=== PATIENT | male | born 1970 | race Caucasian/White ===

== ENCOUNTER 2023-12-07 05:07 | Emergency (ER) | payer OTHER ==
--- OUTSIDE RECORDS SUMMARY | 2023-12-07 05:10 | XMS REPORT | Continuity of Care Document ---
Author Name Unknown Address [address] [facility] [address] [place] [address] [facility] Address [address] [facility] [address] [place] [address] Care Team Providers Care Health Policy Analyst Name Role Phone BEVERLEY PATTERSON Attending Clinician Unavailable KEVIN EUBANKS Attending Clinician Unavailable Encounters Start Date/Time End Date/Time Encounter Type Admission Type Attending Clinicians Care Facility Care Department Encounter ID Source 2023-08-04 08:59:52 2023-08-04 08:59:52 Outpatient [facility] S[facility] [id number] Sarwat Watt 2023-07-02 14:18:35 2023-07-02 14:18:35 Outpatient [facility] SFA [id number] Sarwat Watt 2023-06-21 09:54:19 2023-06-21 09:54:19 Outpatient [facility] SFA [id number] Sarwat Watt 2022-11-10 11:21:50 2022-11-10 11:21:50 Outpatient [facility] SFA [id number] Sarwat Watt 2022-10-10 08:45:00 2022-10-10 08:45:00 Outpatient BEVERLEY PATTERSON [id number] Maribell Noriega 2022-09-21 08:02:11 2022-09-21 08:02:11 Outpatient [facility] SFA [id number] Sarwat Farley Shukri 2022-09-18 09:45:00 2022-09-18 09:45:00 Outpatient KEVIN EUBANKS [id number] Maribell Noriega Results Test Description Test Time Test Comments Results Result Co mments Source RHEUMATOID FACTOR, [id number] 06:31:40* Test Item Value Reference Range Interpretation Comme nts RHEUMATOID FACTOR, QUANT (te st code = 3502) 11 IU/ML <14 URIC [id number] 06:16:49* Test Item Value Reference Range Interpretation Comme nts URIC ACID (test code = 2233) 6.8 MG/DL 3.7-8.0 CCP [id number] 05:34:04* Test Item Value Reference Range Interpretation Comme nts CCP IgG (test code = 40923) <0.5 U/ML <3.0 INTERPRETIVE INFORMATION INTERPRETATION RESULT NEGATIVE <3.0 U/ML POSITIVE >=3.0 U/ML SEDIMENTATION [id number] 05:10:47* Test Item Value Reference Range Interpretation Comme nts SEDIMENTATION RATE (test code = 1017) 14 MM/HOUR 0-15 UNLESS OTHERW ISE INDICATED, ALL TESTING PERFORMED AT [facility] [address] [place] [address] REDIPPER: EMEKA BHATT M.D. CLIA NUMBER [id number] [place]. [id number] CBC W/AUTO DIFF WITH [id number] 03:20:29* Test Item Value Reference Range Interpretation Comme nts WBC (test code = 1001) 10.8 K/UL 3.5-11.0 RBC (test code = 1002) 4.27 M/UL 4.50-6.10 L HEMOGLOBIN (test code = 1003) 12.9 G/DL 13.5-17.0 L HEMATOCRIT (test code = 1004) 39.6 % 40.0-51.0 L MCV (test code = 1005) 92.7 fL 80.0-99.0 MCH (test code = 1006) 30.2 PG 25.0-33.0 MCHC (test code = 1007) 32.6 G/DL 31.0-36.0 RDW (test code = 1038) 12.9 % 11.5-15.0 NEUTROPHILS (test code = 1008) 67.6 % LYMPHOCYTES (test code = 1010) 22.5 % MONOCYTES (test code = 1011) 6.4 % EOSINOPHILS (test code = 1012) 1.7 % BASOPHILS (test code = 1013) 0.5 % IMMATURE GRANULOCYTES (test code = 1036) 1.3 % NUCLEATED RBCS (test code = 1065) 0.0 /100 WBC'S See_Comment [Automated messa SvitStyle] The system which generated this result transmitted reference range: 0.0. The reference range was not used to interpret this result as normal/abnormal. PLATELET COUNT (test code = 1015) 430 K/UL 130-400 H ABSOLUTE NEUTROPHILS (test code = 1066) 7.33 K/UL 1.50-7.50 ABSOLUTE LYMPHOCYTES (test code = 1067) 2.44 K/UL 1.00-4.00 ABSOLUTE MONOCYTES (test code = 1068) 0.69 K/UL 0.20-1.00 ABSOLUTE EOSINOPHILS (test code = 1040) 0.18 K/UL 0.00-0.50 ABSOLUTE BASOPHILS (test code = 1069) 0.05 K/UL 0.00-0.20 ABS IMMATURE GRANULOCYTES (test code = 1020) 0.14 K/UL 0.00-0.10 H ABS NUCLEATED RBCS (test code = 12462) 0.00 K/UL 0.00-0.11
[2023-12-07] MEDS ORDERED: MORPHINE 4 MG/ML SYR ONE (05:30)
[2023-12-07] MEDS ORDERED: ACETAMINOPHEN 500 MG TAB ONE (05:30)
[2023-12-07] MEDS ORDERED: IBUPROFEN 400 MG TAB ONE (05:30)
[2023-12-07] MEDS ORDERED: LIDOCAINE 1% 20 ML MDV ONE (05:35)
--- NOTE | 2023-12-07 06:20 | EDPHYS ---
Physician Documentation [facility] Name: Elliott Olsen Age: 53 yrs Sex: Male : 1970 Arrival Date: 12/07/2023 Time: 05:07 Bed 7 Private MD: ED Physician Roland Pinon HPI: 12/06 05:24 This 53 yrs old Male presents to ER via Ambulatory with complaints of Foot ec2 Injury, Pain. 05:24 Patient arrives today after a foot injury. States that he stepped his right big toe and ec2 it is now deformed.. Historical: - Allergies: 05:22 Sulfa (Sulfonamide Antibiotics); bm8 05:22 PENICILLINS; bm8 - Home Meds: 05:22 None [Active]; bm8 - PMHx: 05:22 None; bm8 - PSHx: 05:22 hernia repair x3; bm8 - Immunization history:: Adult Immunizations unknown. - Infectious Disease History:: Denies. - Social history:: Smoking status: Patient denies any tobacco usage or history of. Patient uses alcohol. ROS: 05:24 Constitutional: as per hpi ec2 Exam: 05:24 Constitutional: GEN: NAD Head: atraumatic Eyes: EOMI Ears: External ears are ec2 normal. CV: regular rate LUNGS: no respiratory distress ABD: non-distended SKIN: no evidence of rashes MSK: What appears like distal dislocation of the right great toe NEURO: moves all extremities equally Vital Signs: 05:20 BP 174 / 112; Pulse 80; Resp 17; Temp 97.9; Pulse Ox 98% ; Weight 90.72 kg; Height 5 bm8 ft. 10 in. ; Pain 8/10; 06:23 BP 161 / 112; Pulse 80; Resp 17; Temp 98; Pulse Ox 99% ; Pain 3/10; bm8 05:20 Body Mass Index 28.70 (90.72 kg, 177.8 cm) bm8 05:20 Pain Scale: Adult bm8 06:23 Pain Scale: Adult bm8 Acton Coma Score: 05:25 Eye Response: spontaneous(4). Motor Response: obeys commands(6). Verbal Response: bm8 oriented(5). Total: 15. 06:23 Eye Response: spontaneous(4). Motor Response: obeys commands(6). Verbal Response: bm8 oriented(5). Total: 15. Procedures: 05:41 Nerve block: (digital) of plantar aspect of right first toe Medication: Lidocaine 1% ec2 without epinephrine Amount: 8 mls were injected, Effect: the patient's symptoms are improved, moderately, Set up for procedure. Performed by Roland Pinon MD Patient tolerated well. 06:16 Joint Treatment: reduction of the right foot/toe(s) Right first toenail using joint ec2 reduction. MDM: 05:14 Patient medically screened. ec2 05:24 Data reviewed: vital signs. ED course: Patient arrives today for evaluation of a right ec2 great toe injury. Examination remarkable for MSK findings as above. No open wounds. Will obtain radiograph eval for fracture, dislocation, contusion.. 05:46 ED course: Foot x-ray independently reviewed and interpreted by me, shows distal ec2 phalanx fracture, comminuted, displaced. Will attempt manipulation.. 12/06 05:16 Order name: Foot Right 3 View XRAY ec2 12/06 05:59 Order name: Foot Right 3 View XRAY ec2 12/06 05:46 Order name: Posterior Leg Splint; Complete Time: 06:10 ec2 12/06 05:46 Order name: Crutches; Complete Time: 06:10 ec2 Administered Medications: 05:34 Drug: morphine IM 4 mg IM once Route: IM; Site: right deltoid; bm8 06:11 Follow up: Response: No adverse reaction bm8 05:34 Drug: Acetaminophen PO 1000 mg PO once Route: PO; bm8 06:11 Follow up: Response: No adverse reaction bm8 05:34 Drug: Ibuprofen PO 800 mg PO once Route: PO; bm8 06:11 Follow up: Response: No adverse reaction bm8 05:40 Drug: Lidocaine-Epinephrine Infiltration -1%: (1:100,000) 10 ml 20 ml Infiltration bm8 once; to bedside {Note: by provider.} Volume: 20 ml; Route: Infiltration; Site: affected area; 06:11 Follow up: Response: No adverse reaction bm8 Disposition Summary: 12/07/23 06:19 Discharge Ordered Notes: Location: Home ec2 Condition: Stable ec2 Diagnosis - Dislocation of metatarsophalangeal joint of right great toe, initial encounter ec2 - Displaced fracture of distal phalanx of right great toe, initial encounter for ec2 closed fracture Followup: ec2 - With: Private Physician - When: - Reason: Re-evaluation by your physician Followup: ec2 - With: Sumit Rocha MD - When: - Reason: Recheck today's complaints Discharge Instructions: - Discharge Summary Sheet ec2 - Toe Fracture, [id number] ec2 Forms: - Medication Reconciliation Form ec2 - Antibiotic Education ec2 - Prescription Opioid Use ec2 - Patient Portal Instructions ec2 - Leadership Thank You Letter ec2 Prescriptions: - acetaminophen-codeine 300-30 mg Oral tablet - take 1 tablet ORAL route every 4 hours; 20 tablet; Refills: 0, Product ec2 Selection Permitted Signatures: Dispatcher [employer] EDMS Roland Pinon MD MD ec2 José Rocha RN RN bm8 Corrections: (The following items were deleted from the chart) 05:42 05:24 ED course: Patient arrives today for evaluation of a right great toe injury. ec2 Examination remarkable for MSK findings as above. Will obtain radiograph eval for fracture, dislocation, contusion.. ec2 05:46 05:26 Misc. Order ordered. ec2 ec2 05:46 05:26 Ortho shoe ordered. ec2 ec2
--- NOTE | 2023-12-07 06:20 | ER ---
Nurse's Notes [facility] Name: Elliott Olsen Age: 53 yrs Sex: Male : 1970 Arrival Date: 12/07/2023 Time: 05:07 Bed 7 Private MD: Diagnosis: Dislocation of metatarsophalangeal joint of right great toe, initial encounter;Displaced fracture of distal phalanx of right great toe, initial encounter for closed fracture Presentation: 12/06 05:20 Chief complaint: Patient states: I letting my dog out this morning and hit my toe. I bm8 think I broke it. Coronavirus screen: At this time, the client does not indicate any symptoms associated with coronavirus-19. Ebola Screen: Patient negative for fever greater than or equal to 101.5 degrees Fahrenheit, and additional compatible Ebola Virus Disease symptoms Patient denies exposure to infectious person. Patient denies travel to an Ebola-affected area in the 21 days before illness onset. No symptoms or risks identified at this time. Initial Sepsis Screen: Does the patient meet any 2 criteria? No. Patient's initial sepsis screen is negative. Does the patient have a suspected source of infection? No. Patient's initial sepsis screen is negative. Risk Assessment: Do you want to hurt yourself or someone else? Patient reports no desire to harm self or others. Onset of symptoms was December 07, 2023 at 04:30. 05:20 Method Of Arrival: Ambulatory bm8 05:20 Acuity: ALEKSEY 4 bm8 Triage Assessment: 05:22 General: Appears in no apparent distress. uncomfortable, Behavior is calm, cooperative, bm8 appropriate for age. Pain: Complains of pain in right first toe and Right first toenail Pain radiates to right foot Pain currently is 8 out of 10 on a pain scale. EENT: No signs and/or symptoms were reported regarding the EENT system. Neuro: Level of Consciousness is awake, alert, obeys commands, Oriented to person, place, time, situation, Appropriate for age. Cardiovascular: Denies chest pain, Capillary refill < 3 seconds Patient's skin is warm and dry. Respiratory: Airway is patent Respiratory effort is even, unlabored, Respiratory pattern is regular, symmetrical. GI: No signs and/or symptoms were reported involving the gastrointestinal system. : No signs and/or symptoms were reported regarding the genitourinary system. Derm: No signs and/or symptoms reported regarding the dermatologic system. Musculoskeletal: Bony deformity noted of right first toe and Right first toenail Reports pain in right foot. Injury Description: Deformity. Historical: - Allergies: 05:22 Sulfa (Sulfonamide Antibiotics); bm8 05:22 PENICILLINS; bm8 - Home Meds: 05:22 None [Active]; bm8 - PMHx: 05:22 None; bm8 - PSHx: 05:22 hernia repair x3; bm8 - Immunization history:: Adult Immunizations unknown. - Infectious Disease History:: Denies. - Social history:: Smoking status: Patient denies any tobacco usage or history of. Patient uses alcohol. Screenin:25 [facility] ED Fall Risk Assessment (Adult) History of falling in the last 3 months, bm8 including since admission No falls in past 3 months (0 pts) Confusion or Disorientation No (0 pts) Intoxicated or Sedated No (0 pts) Impaired Gait Yes (1 pt) Mobility Assist Device Used No (0 pt) Altered Elimination No (0 pt) Score/Fall Risk Level 0 - 2 = Low Risk Oriented to surroundings, Maintained a safe environment, Educated pt \T\ family on fall prevention, incl call for assistance when getting out of bed, Assessed \T\ reinforced patient's understanding of fall precautions, Hourly rounding (assess needs \T\ fall precautionary measures) done, Used ambulatory aids as needed (educated on \T\ assisted with). Abuse screen: Denies threats or abuse. Nutritional screening: No deficits noted. Tuberculosis screening: No symptoms or risk factors identified. Assessment: 05:25 Reassessment: see triage note. bm8 06:11 Reassessment: Patient appears in no apparent distress at this time. Patient and/or bm8 family updated on plan of care and expected duration. Pain level reassessed. Patient is alert, oriented x 3, equal unlabored respirations, skin warm/dry/pink. Patient states feeling better. Vital Signs: 05:20 BP 174 / 112; Pulse 80; Resp 17; Temp 97.9; Pulse Ox 98% ; Weight 90.72 kg; Height 5 bm8 ft. 10 in. ; Pain 8/10; 06:23 BP 161 / 112; Pulse 80; Resp 17; Temp 98; Pulse Ox 99% ; Pain 3/10; bm8 05:20 Body Mass Index 28.70 (90.72 kg, 177.8 cm) bm8 05:20 Pain Scale: Adult bm8 06:23 Pain Scale: Adult bm8 Elisha Coma Score: 05:25 Eye Response: spontaneous(4). Motor Response: obeys commands(6). Verbal Response: bm8 oriented(5). Total: 15. 06:23 Eye Response: spontaneous(4). Motor Response: obeys commands(6). Verbal Response: bm8 oriented(5). Total: 15. ED Course: 05:13 Patient arrived in ED. gm2 05:13 Roland Pinon MD is Attending Physician. ec2 05:15 José Rocha, RN is Primary Nurse. bm8 05:22 Triage completed. bm8 05:22 Arm band placed on right wrist. bm8 05:25 Patient has correct armband on for positive identification. Bed in low position. Call bm8 light in reach. Adult w/ patient. Client placed on continuous cardiac and pulse oximetry monitoring. NIBP monitoring applied. Pulse ox on. NIBP on. Door closed. Noise minimized. Pillow given. Verbal reassurance given. Head of bed elevated. 05:25 Patient did not have IV access during this emergency room visit. bm8 05:59 Foot Right 3 View XRAY In Process Unspecified. EDMS 06:11 Provided Education on: use of crutches. bm8 06:11 No provider procedures requiring assistance completed. Crutch training done. Orthoglass bm8 splint: Posterior short lleg splint applied on right leg. 06:19 Sumit Rocha MD is Referral Physician. ec2 06:28 Foot Right 3 View XRAY In Process Unspecified. EDMS Administered Medications: 05:34 Drug: morphine IM 4 mg IM once Route: IM; Site: right deltoid; bm8 06:11 Follow up: Response: No adverse reaction bm8 05:34 Drug: Acetaminophen PO 1000 mg PO once Route: PO; bm8 06:11 Follow up: Response: No adverse reaction bm8 05:34 Drug: Ibuprofen PO 800 mg PO once Route: PO; bm8 06:11 Follow up: Response: No adverse reaction bm8 05:40 Drug: Lidocaine-Epinephrine Infiltration -1%: (1:100,000) 10 ml 20 ml Infiltration bm8 once; to bedside {Note: by provider.} Volume: 20 ml; Route: Infiltration; Site: affected area; 06:11 Follow up: Response: No adverse reaction bm8 Medication: 05:25 VIS not applicable for this client. bm8 Outcome: 06:19 Discharge ordered by . rosa isela 06:28 Discharged to home ambulatory, with crutches, bm8 06:28 Condition: stable 06:28 Condition: stable 06:28 Discharge instructions given to patient, family, Instructed on discharge instructions, follow up and referral plans. no drinking with medication, no driving heavy equipment, medication usage, safety practices, Demonstrated understanding of instructions, follow-up care, medications, Prescriptions given X 1, :29 Patient left the ED. bm8 Signatures: Dispatcher [employer] EDSC Roland Pinon MD MD ec2 Jhoana Walls 2 José Rocha, RN RN bm8
[2023-12-07 06:43] VITALS: BP 161/112; TEMP 98; O2SAT 99
--- NOTE | 2023-12-08 20:27 | RAD REPORT ---
EXAM DESCRIPTION: RAD - Foot Right 3 View - 12/07/2023 5:57 am CLINICAL HISTORY: Male, 53 years old, injury TECHNIQUE: 3 views COMPARISON: None. FINDINGS: Suboptimal patient positioning/projection limits assessment. Dorsal dislocation of the int erphalangeal joint with evidence of comminuted mildly displaced fragments of the phalangeal base. Ass ociated soft tissue swelling and deformity. Remaining osseous structures are intact. IMPRESSION: Right 1st toe dorsal IP joint fracture dislocation. Electronically signed by: Octavio Goncalves MD 12/07/2023 06:06 AM CDT RP Due to temporary technical issues with the PACS/Fluency reporting system, reports are being signed by the in house radiologists without review as a courtesy to insure prompt reporting. The interpreting radiologist is fully responsible for the content of the report.
--- NOTE | 2023-12-08 20:29 | RAD REPORT ---
EXAM DESCRIPTION: RAD - Foot Right 3 View - 12/07/2023 6:26 am CLINICAL HISTORY: Male, 53 years old, post reduction TECHNIQUE: 3 views COMPARISON: Same day right foot radiographs at 0527 hours FINDINGS: See below. IMPRESSION: Status post closed reduction of the previous right 1st interphalangeal joint dorsal disl ocation and splint placement with improved visualization of the significantly comminuted intra-articu lar fracture of the 1st distal phalangeal base. No other significant change from 46 minutes prior. Electronically signed by: Octavio Goncalves MD 12/07/2023 06:41 AM CDT RP Due to temporary technical issues with the PACS/Fluency reporting system, reports are being signed by the in house radiologists without review as a courtesy to insure prompt reporting. The interpreting radiologist is fully responsible for the content of the report.
== END 2023-12-07 06:29 | disposition home or self-care (01) ==
LOC: ER 05:07
PROC: 0SSMXZZ Reposition Right Metatarsal-Phalangeal Joint, External Approach (ICD-10-PCS; principal; 2023-12-07)
DX: S92.421A Displaced fracture of distal phalanx of right great toe, initial encounter for closed fracture (principal); S93.121A Dislocation of metatarsophalangeal joint of right great toe, initial encounter
CPT/HCPCS: 73630 ×2; 64450; 96372; 99284; 28495; J2001

== ENCOUNTER 2024-01-10 01:15 | Inpatient (IN) | payer OTHER ==
--- OUTSIDE RECORDS SUMMARY | 2024-01-10 01:18 | XMS REPORT | Continuity of Care Document ---
Author Name Unknown Address [address] [place] [address] [facility] Address [address] [place] [address] Care Team Providers Care Dixonac Operator Name Role Phone Meredith Galindo, Carmelina Primary Care Physician BEVERLEY PATTERSON Attending Clinician Unavailable KEVIN EUBANKS Attending Clinician Unavailable Allergies, Adverse Reactions, Alerts Allergy Name Allergy Type Status Severity Reaction(s) Onset Date Inactive Date Treating Clinician Comments Source Penicill ins - CLASS Propensi ty to adverse reaction to drug Active 09-21 00:00: 00 Sarwat Watt Medications Ordered Medication Name Filled Medication Name Start Date Stop Date Current Medication? Ordering Clinician Indication Dosage Frequency Signature (SIG) Comments Components Source azithromyci n 500 mg tablet 9-05 00:00: 00 Yes 1mg Sarwat Watt losartan 25 mg tablet 12-24 00:00: 00 Yes 1mg Sarwat Watt gabapentin 600 mg tablet 12-24 00:00: 00 Yes 1mg Sarwat Watt prednisone 20 mg tablet 12-24 00:00: 00 Yes 2mg Sarwat Watt ibuprofen 800 mg tablet 27 00:00: 00 Yes 1mg Sarwat Watt cyclobenzap rine 10 mg tablet 12-24 00:00: 00 Yes 1mg Sarwat Watt prednisone 20 mg tablet 3- 00:00: 00 Yes 2mg Sarwat Watt ibuprofen 800 mg tablet 3- 00:00: 00 Yes 1mg Sarwat Watt TAKE 10 ML EVERY 6 HOURS NEEDED. 06-21 00:00: 00 08-06 00:00 :00 No [id number] Sarwat Watt MASSAGE INTO SKIN FROM HEAD TO SOLES OF FEET. WASH OFF AFTER 8-14 HOURS.REPEA T IN 1 WEEK. 2-17 00:00: 00 08-06 00:00 :00 No 5 Sarwat Watt TAKE 2 TABLETS ON DAY 1 THEN TAKE 1 TABLET A DAY FOR 4 DAYS. 2-17 00:00: 00 08-06 00:00 :00 No 250 Sarwat Watt AZITHROMYCI N 250 MG TABS 2022-04 1-16 00:00: 00 Yes 250 Sarwat Watt MASSAGE INTO SKIN FROM HEAD TO SOLES OF FEET. WASH OFF AFTER 8-14 HOURS.REPEA T IN 1 WEEK. 7- 00:00: 00 08-06 00:00 :00 No 5 Sarwat Watt TAKE 2 TABLETS DAILY WITH FOOD 09-21 00:00: 00 08-06 00:00 :00 No 20 Sarwat Watt TAKE 1 TABLET 3 TIMES DAILY WITH FOOD NEEDED. 09-21 00:00: 00 08-06 00:00 :00 No 800 Sarwat Watt Vital Signs Vital Name Observation Time Observation Value Comments S ource BP Systolic 2024-01-03 15:45:00 121 mm[Hg] Steve Watt BP Diastolic 2024-01-03 15:45:00 77 mm[Hg] Abhay phen Miguelito Watt Weight Measured 2024-01-03 15:45:00 211.58 pounds Sarwat Watt Height Measured 2024-01-03 15:45:00 68.00 inches Sarwat Watt Body Temperature 2024-01-03 15:45:00 101.70 degrees Sarwat Watt Heart Rate 2024-01-03 15:45:00 139.00 /min Steve Watt Respiratory Rate 2024-01-03 15:45:00 18.00 /min Sarwat Watt BP Systolic 2023-12-25 17:42:00 154 mm[Hg] Steve Watt BP Diastolic 2023-12-25 17:42:00 98 mm[Hg] Abhay phen Miguelito Watt Weight Measured 2023-12-25 17:42:00 208.00 pounds Sarwat Watt Height Measured 2023-12-25 17:42:00 68.00 inches Sarwat F Shukri Body Temperature 2023-12-25 17:42:00 98.20 degrees Sarwat F Shukri Heart Rate 2023-12-25 17:42:00 62.00 /min Chiqui en F Shukri Respiratory Rate 2023-12-25 17:42:00 19.00 /min Sarwat F Shukri BP Systolic 2023-07-02 14:23:00 143 mm[Hg] Step hen F Shukri BP Diastolic 2023-07-02 14:23:00 96 mm[Hg] Abhay phen F Shukri Weight Measured 2023-07-02 14:23:00 197.80 pounds Sarwat F Shukri Height Measured 2023-07-02 14:23:00 68.00 inches Sarwat F Shukri Body Temperature 2023-07-02 14:23:00 98.90 degrees Sarwat F Shukri Heart Rate 2023-07-02 14:23:00 96.00 /min Chiqui en F Shukri Respiratory Rate 2023-07-02 14:23:00 18.00 /min Sarwat F Shukri BP Systolic 2023-06-21 10:11:00 166 mm[Hg] Step hen F Shukri BP Diastolic 2023-06-21 10:11:00 96 mm[Hg] Abhay phen F Shukri Weight Measured 2023-06-21 10:11:00 195.20 pounds Sarwat F Shukri Height Measured 2023-06-21 10:11:00 68.00 inches Sarwat F Shukri Body Temperature 2023-06-21 10:11:00 98.40 degrees Sarwat F Shukri Heart Rate 2023-06-21 10:11:00 97.00 /min Chiqui en F Shukri Respiratory Rate 2023-06-21 10:11:00 18.00 /min Sarwta F Shukri Weight Measured 2022-11-10 11:27:00 191.00 pounds Sarwat F Shukri Height Measured 2022-11-10 11:27:00 68.00 inches Sarwat F Shukri Body Temperature 2022-11-10 11:27:00 97.40 degrees Sarwat F Shukri Heart Rate 2022-11-10 11:27:00 82.00 /min Chiqui en F Shukri Respiratory Rate 2022-11-10 11:27:00 98.00 /min Sarwat F Shukri BP Systolic 2022-11-10 11:27:00 141 mm[Hg] Steve Watt BP Diastolic 2022-11-10 11:27:00 103 mm[Hg] Abhay phen Miguelito Watt BP Systolic 2022-09-21 08:08:00 140 mm[Hg] Steve Watt BP Diastolic 2022-09-21 08:08:00 88 mm[Hg] Abhay phen Miguelito Watt Weight Measured 2022-09-21 08:08:00 193.80 pounds Sarwat Watt Height Measured 2022-09-21 08:08:00 68.00 inches Sarwat Watt Body Temperature 2022-09-21 08:08:00 97.80 degrees Sarwat Watt Heart Rate 2022-09-21 08:08:00 114.00 /min Steve Watt Respiratory Rate 2022-09-21 08:08:00 Sarwat Watt Encounters Start Date/Time End Date/Time Encounter Type Admission Type Attending [facility] Care Department Encounter ID Source 2024-01-09 09:10:08 2024-01-09 09:10:08 Outpatient SFA SFA [id number] Sarwat Watt 2024-01-03 15:31:17 2024-01-03 15:31:17 Outpatient SFA SFA [id number] aSrwat Watt 2024-01-03 00:00:00 2024-01-03 00:00:00 Outpatient Visit SFA [id number] Sarwat Watt 2023-12-25 17:33:39 2023-12-25 17:33:39 Outpatient SFA SFA [id number] Sarwat Watt 2023-12-25 00:00:00 2023-12-25 00:00:00 Outpatient Visit SFA [id number] Sarwat Watt 2023-08-04 08:59:52 2023-08-04 08:59:52 Outpatient SFA SFA [id number] Sarwat Watt 2023-07-02 14:18:35 2023-07-02 14:18:35 Outpatient SFA SFA [id number] Sarwat Watt 2023-06-21 09:54:19 2023-06-21 09:54:19 Outpatient S[facility] [id number] Sarwat Watt 2022-11-10 11:21:50 2022-11-10 11:21:50 Outpatient SFA [facility] [id number] Sarwat Watt 2022-10-10 08:45:00 2022-10-10 08:45:00 Outpatient BEVERLEY PATTERSON [id number] Maribell Noriega 2022-09-21 08:02:11 2022-09-21 08:02:11 Outpatient SFA [facility] [id number] Sarwat Watt 2022-09-18 09:45:00 2022-09-18 09:45:00 Outpatient KEVIN EUBANKS [id number] Maribell Noriega Results Test Description Test Time Test Comments Results Result Co mments Source Sarwat Sanchez, SERUM [ADDED]2023-08-07 00:00:00* Test Item Value Reference Range Interpretation Comme nts IRON, SERUM (test code = 2222) 93 UG/DL Sarwat Howell REFLEX AUTOIMMUNE AB [id number] 22:21:19* Test Item Value Reference Range Interpretation Comme nts ANTI-NUCLEAR ANTIBODIES (test code = 3506) NEGATIVE NEGATIVE Methodology is I ndirect Immunofluorescent Assay (IFA) with a titering system using [id number] cells (Hep2 cells transfected with SS-A/Ro). ÁNGEL PATTERN (REPORTED TITER) (test code = 33326) SEE BELOW HOMOGENEOUS (test code = 84135) NEGATIVE TITER NEGATIVE SPECKLED (test code = 212156) NEGATIVE TITER NEGATIVE DENSE FINE SPECKLED (test code = 07013) NEGATIVE TITER NEGATIVE CENTROMERE (test code = 544408) NEGATIVE TITER NEGATIVE COARSE SPECKLED (test code = 852256) NEGATIVE TITER NEGATIVE DISCRETE NUCLEAR DOTS (test code = 675089) NEGATIVE TITER NEGATIVE NUCLEOLAR (test code = 843920) NEGATIVE TITER NEGATIVE NUCLEAR MEMBRANE (test code = 106280) NEGATIVE TITER NEGATIVE CYTO. RETICULAR (DIPESH) (test code = 394132) NEGATIVE NEGATIVE COMMENTS (test code = 221653) NONE METHOD (test code = 79192) (NOTE) TESTING PERFORME D BY IDx IFA PLATFORM.THE METHOD INCLUDES A SCREEN THRESHOLD OF 1:80, DIGITIZED AND COMPUTER ALGORITHM-ASSISTED INTERPRETATION OF TITERS AND DIGITAL PATTERNS, AND HEp-2 CELL LINE SUBSTRATE. ADDITIONAL UNUSUAL PATTERNS WILL BE GIVEN COMMENTS.FOR MORE INFORMATION, SEE [email or web address] RHEUMATOID FACTOR, [id number] 06:31:40* Test Item Value Reference Range Interpretation Comme nts RHEUMATOID FACTOR, QUANT (te st code = 3502) 11 IU/ML <14 URIC [id number] 06:16:49* Test Item Value Reference Range Interpretation Comme nts URIC ACID (test code = 2233) 6.8 MG/DL 3.7-8.0 CCP [id number] 05:34:04* Test Item Value Reference Range Interpretation Comme nts CCP IgG (test code = 99787) <0.5 U/ML <3.0 INTERPRETIVE INFORMATION INTERPRETATION RESULT NEGATIVE <3.0 U/ML POSITIVE >=3.0 U/ML SEDIMENTATION [id number] 05:10:47* Test Item Value Reference Range Interpretation Comme nts SEDIMENTATION RATE (test code = 1017) 14 MM/HOUR 0-15 UNLESS OTHERW ISE INDICATED, ALL TESTING PERFORMED AT [facility] [address] [place] [address] ROLL OR TAPE EDGE MACHINE OPERATOR: EMEKA BHATT M.D. CLIA NUMBER [id number] [facility] [id number] CBC W/AUTO DIFF WITH [id number] 03:20:29* Test Item Value Reference Range Interpretation [...] = 1065) 0.0 /100 WBC'S See_Comment [Automated [employer] ge] The system which generated this result transmitted [...] H ABS NUCLEATED RBCS (test code = 73594) 0.00 K/UL 0.00-0.11 ÁNGEL REFLEX AUTOIMMUNE AB [id number] 00:00:00* Test Item Value Reference Range Interpretation Comme nts ANTI-NUCLEAR ANTIBODIES (paige t code = 3506) NEGATIVE ÁNGEL PATTERN (REPORTED TITER) (test code = 22138) SEE BELOW HOMOGENEOUS (test code = 69041) NEGATIVE TITER SPECKLED (test code = 589171) NEGATIVE TITER DENSE FINE SPECKLED (test co de = 64364) NEGATIVE TITER CENTROMERE (test code = 914317) NEGATIVE TITER COARSE SPECKLED (test code = 921297) NEGATIVE TITER DISCRETE NUCLEAR DOTS (test code = 795507) NEGATIVE TITER NUCLEOLAR (test code = 134066) NEGATIVE TITER NUCLEAR MEMBRANE (test code = 120791) NEGATIVE TITER CYTO. RETICULAR (DIPESH) (test code = 261851) NEGATIVE COMMENTS (test code = 804978) NONE METHOD (test code = 54953) (NOTE) Sarwat Farley AustinRHEUMATOID FACTOR, [id number] 00:00:00* Test Item Value Reference Range Interpretation Comme nts RHEUMATOID FACTOR, QUANT (te st code = 3502) 11 IU/ML Sarwat WattCCP [id number] 00:00:00* Test Item Value Reference Range Interpretation Comme nts CCP IgG (test code = 84835) <0.5 U/ML Sarwat WattCBC W/AUTO [id number] 00:00:00* Test Item Value Reference Range Interpretation Comme nts WBC (test code = 1001) 10.8 K/UL RBC (test code = 1002) 4.27 M/UL HEMOGLOBIN (test code = 1003) 12.9 G/DL HEMATOCRIT (test code = 1004) 39.6 % MCV (test code = 1005) 92.7 fL MCH (test code = 1006) 30.2 PG MCHC (test code = 1007) 32.6 G/DL RDW (test code = 1038) 12.9 % NEUTROPHILS (test code = 1008) 67.6 % LYMPHOCYTES (test code = 1010) 22.5 % MONOCYTES (test code = 1011) 6.4 % EOSINOPHILS (test code = 1012) 1.7 % BASOPHILS (test code = 1013) 0.5 % IMMATURE GRANULOCYTES (test code = 1036) 1.3 % NUCLEATED RBCS (test code = 1065) 0.0 /100WBC'S PLATELET COUNT (test code = 1015) 430 K/UL ABSOLUTE NEUTROPHILS (test c ode = 1066) 7.33 K/UL ABSOLUTE LYMPHOCYTES (test c ode = 1067) 2.44 K/UL ABSOLUTE MONOCYTES (test cod e = 1068) 0.69 K/UL ABSOLUTE EOSINOPHILS (test c ode = 1040) 0.18 K/UL ABSOLUTE BASOPHILS (test cod e = 1069) 0.05 K/UL ABS IMMATURE GRANULOCYTES (t est code = 1020) 0.14 K/UL ABS NUCLEATED RBCS (test cod e = 01026) 0.00 K/UL Sarwat WattURIC [id number] 00:00:00* Test Item Value Reference Range Interpretation Comme nts URIC ACID (test code = 2233) 6.8 MG/DL Sarwat WattSEDIMENTATION [id number] 00:00:00* Test Item Value Reference Range Interpretation Comme nts SEDIMENTATION RATE (test cod e = 1017) 14 MM/HOUR Sarwat Howell REFLEX AUTOIMMUNE AB [id number] 00:00:00* Test Item Value Reference Range Interpretation Comme nts ANTI-NUCLEAR ANTIBODIES (paige t code = 3506) NEGATIVE ÁNGEL PATTERN (REPORTED TITER) (test code = 50400) SEE BELOW HOMOGENEOUS (test code = 83309) NEGATIVE TITER SPECKLED (test code = 208224) NEGATIVE TITER DENSE FINE SPECKLED (test co de = 17172) NEGATIVE TITER CENTROMERE (test code = 507735) NEGATIVE TITER COARSE SPECKLED (test code = 109455) NEGATIVE TITER DISCRETE NUCLEAR DOTS (test code = 521802) NEGATIVE TITER NUCLEOLAR (test code = 689917) NEGATIVE TITER NUCLEAR MEMBRANE (test code = 686296) NEGATIVE TITER CYTO. RETICULAR (DIPESH) (test code = 578599) NEGATIVE COMMENTS (test code = 249034) NONE METHOD (test code = 03816) (NOTE) Sarwat WattRHEUMATOID FACTOR, [id number] 00:00:00* Test Item Value Reference Range Interpretation Comme kenneth RHEUMATOID FACTOR, QUANT (te st code = 3502) 11 IU/ML Sarwat WattCCP [id number] 00:00:00* Test Item Value Reference Range Interpretation Comme nts CCP IgG (test code = 30812) <0.5 U/ML Sarwat WattCBC W/AUTO [id number] 00:00:00* Test Item Value Reference Range Interpretation Comme nts WBC (test code = 1001) 10.8 K/UL RBC (test code = 1002) 4.27 M/UL HEMOGLOBIN (test code = 1003) 12.9 G/DL HEMATOCRIT (test code = 1004) 39.6 % MCV (test code = 1005) 92.7 fL MCH (test code = 1006) 30.2 PG MCHC (test code = 1007) 32.6 G/DL RDW (test code = 1038) 12.9 % NEUTROPHILS (test code = 1008) 67.6 % LYMPHOCYTES (test code = 1010) 22.5 % MONOCYTES (test code = 1011) 6.4 % EOSINOPHILS (test code = 1012) 1.7 % BASOPHILS (test code = 1013) 0.5 % IMMATURE GRANULOCYTES (test code = 1036) 1.3 % NUCLEATED RBCS (test code = 1065) 0.0 /100WBC'S PLATELET COUNT (test code = 1015) 430 K/UL ABSOLUTE NEUTROPHILS (test c ode = 1066) 7.33 K/UL ABSOLUTE LYMPHOCYTES (test c ode = 1067) 2.44 K/UL ABSOLUTE MONOCYTES (test cod e = 1068) 0.69 K/UL ABSOLUTE EOSINOPHILS (test c ode = 1040) 0.18 K/UL ABSOLUTE BASOPHILS (test cod e = 1069) 0.05 K/UL ABS IMMATURE GRANULOCYTES (t est code = 1020) 0.14 K/UL ABS NUCLEATED RBCS (test cod e = 82606) 0.00 K/UL Sarwat WattURIC [id number] 00:00:00* Test Item Value Reference Range Interpretation Comme nts URIC ACID (test code = 2233) 6.8 MG/DL Sarwat WattSEDIMENTATION [id number] 00:00:00* Test Item Value Reference Range Interpretation Comme nts SEDIMENTATION RATE (test cod e = 1017) 14 MM/HOUR Sarwat Watt Notes Date/Time Note Provider Source Sarwat Escalante [facility]2024-08-27 00:00:00 Sarwat Escalante [facility]
[2024-01-10] MEDS ORDERED: NA CHLORIDE 0.9% 2,000 ML ONE (01:21)
[2024-01-10] MEDS ORDERED: VANCOMYCIN 1 GM/VIAL ONE (01:49)
[2024-01-10] MEDS ORDERED: ONDANSETRON 4 MG/2 ML VIAL ONE (01:49)
[2024-01-10] MEDS ORDERED: PIPERACIL/TAZO 3.375 GM VIAL IV ONE (01:50)
[2024-01-10] MEDS ORDERED: NA CHLORIDE 0.9% 1,000 ML ONE (01:50)
[2024-01-10] MEDS ORDERED: NA CHLORIDE 0.9% 100 ML ONE ×2 (01:51→06:52)
[2024-01-10] MEDS ORDERED: NA CHLORIDE 0.9% 250 ML ONE (01:51)
[2024-01-10] MEDS ORDERED: ALBUMIN HUMAN 25% 200 ML IV ONE (02:13)
[2024-01-10 02:38] LABS: Absolute Lymphocytes (CBC) 0.5 K/uL (0.7-4.9); Absolute Monocytes 0.1 K/uL (0.1-1.3); Absolute Neutrophil 34.9 K/uL (1.8-8.0); Basophils % 0.1 % (0-1.3); Eosinophils % 0.1 % (0-4.4); Hematocrit 32.7 % (39.6-49.0); Hemoglobin 10.9 g/dL (13.6-17.9); Lymphocytes % 1.4 % (15.3-44.8); MCHC 33.2 g/dL (32.0-36.0); MCV 93.2 fL (80-100); MPV 10.1 fL (7.6-11.3); Monocytes % 0.4 % (3.3-12.3); Platelets 214 thou/uL (152-406); RBC Red Blood Cell Count 3.51 M/uL (4.33-5.43); Red Cell Distribution Width 14.3 % (12.1-15.2)
[2024-01-10 02:41] LABS: PT Prothrombin Time 11.7 SECONDS (9.4-12.5); PTT, Activated Partial Thromb 28.2 SECONDS (24.3-36.9); Protime INR 1.05
[2024-01-10 02:55] LABS: Albumin 2.1 g/dL (3.4-5.0); Albumin/Globulin Ratio 0.5 (1.1-1.8); Anion Gap 16.2 mEq/L (5.0-15.0); Bilirubin Total 0.9 mg/dL (0.2-1.0); Globulin 4.1 g/dL (2.3-3.5); Potassium 3.2 mEq/L (3.5-5.1); Protein, Total 6.2 g/dL (6.4-8.2)
[2024-01-10 03:24] LABS: Thyroid Stimulating Hormone 6.15 uIU/mL (0.358-3.740)
[2024-01-10] MEDS ORDERED: MUPIROCIN 2% OINT 22GM TUBE TOP ONE (03:33)
[2024-01-10] MEDS ORDERED: NOREPINEPHRINE BITARTRATE/D5W 4 MG/250 ML KIT IV ONE (03:34)
[2024-01-10] MEDS ORDERED: LIDOCAINE 1% 20 ML MDV ONE (03:45)
[2024-01-10 03:53] LABS: Band Neutrophils 49 % (0-1); Blood Morphology Comment NOT SEEN (NOT SEEN); Differential Total Cells Count 100; Lymphocytes 1 % (15-42); Metamyelocytes 1 % (0-0); Monocytes 3 % (0-10); Platelet Estimate ADEQ; Segmented Neutrophils 46 % (40-80)
[2024-01-10 04:15] LABS: Arterial Blood Carboxyhemoglob 0.9 % (0-1.5); Blood Gas Oxyhemoglobin 96.3 % (94-97); Blood O2 Saturation 98.8 % (92-98.5)
[2024-01-10 04:16] LABS: Blood Gas THB 10.1 g/dl (12-18)
[2024-01-10] MEDS ORDERED: HYDROCORTISONE SUC 100 MG INJ ONE (04:24)
[2024-01-10] MEDS ORDERED: DOPAMINE/D5W 400 MG/250 ML BAG IV ONE (04:26)
[2024-01-10] MEDS ORDERED: SODIUM BICARB 50 MEQ/50ML VIAL ONE ×2 (04:26→04:48)
[2024-01-10] MEDS ORDERED: ATROPINE SULF 1 MG/10 ML SYR IV ONE (04:44)
[2024-01-10] MEDS ORDERED: Calcium Chloride 10% INJ SYR IV ONE (04:49)
[2024-01-10] MEDS ORDERED: CALCIUM GLUCONATE 1 GM IVPB 1 GM/50 ML BAG IV ONE (04:50)
[2024-01-10] MEDS ORDERED: MIDAZOLAM HCL IN 0.9 % NACL/PF 100 MG/100 ML BAG IVPB ONE (05:00)
--- NOTE | 2024-01-10 05:17 | EDPHYS ---
Physician Documentation [facility] Name: Elliott Olsen Age: 53 yrs Sex: Male : 1970 Arrival Date: 01/10/2024 Time: 01:15 Bed 4 Private MD: ED Physician Bryson Arnold HPI: 01/09 04:19 This 53 yrs old Male presents to ER via EMS with complaints of Near Syncope. sp4 Historical: - Allergies: 01:22 PENICILLINS; ha1 01:22 Sulfa (Sulfonamide Antibiotics); ha1 - PMHx: 01:22 Hypertensive disorder; BACK PAIN CHRONIC; ha1 - PSHx: 01:22 hernia repair x3; ha1 - Immunization history:: Adult Immunizations unknown. - Infectious Disease History:: Denies. - Social history:: Smoking status: unknown. ROS: 05:12 Constitutional: ROS not available secondary to obtunded condition sp4 05:12 All other systems are negative, 05:12 Unable to obtain ROS due to altered mental status, Exam: 04:20 Constitutional: This is a well developed, well nourished patient who is lethargic, sp4 ill-appearing, pale, diaphoretic, tachycardic Head/Face: Normocephalic, atraumatic. Eyes: Pupils equal round and reactive to light, extra-ocular motions intact. Lids and lashes normal. Conjunctiva and sclera are not injected. Cornea within normal limits. Periorbital areas with no swelling, redness, or edema. ENT: Nares patent. No nasal discharge, no septal abnormalities noted. Tympanic membranes are normal and external auditory canals are clear. Oropharynx with no redness, swelling, or masses, exudates, or evidence of obstruction, uvula midline. Mucous membranes moist. Neck: Trachea midline, no thyromegaly or masses palpated, and no cervical lymphadenopathy. Supple, full range of motion without nuchal rigidity, or vertebral point tenderness. Chest/axilla: Normal chest wall appearance and motion. Nontender with no deformity. No lesions are appreciated. Cardiovascular: Regular rate and rhythm with a normal S1 and S2. No gallops, murmurs, or rubs. Normal PMI, no JVD. No pulse deficits. Respiratory: Lungs have equal breath sounds bilaterally, clear to auscultation and percussion. No rales, rhonchi or wheezes noted. No increased work of breathing, no retractions or nasal flaring. Abdomen/GI: Soft, with normal bowel sounds. No distension or tympany. No guarding or rebound. No evidence of tenderness throughout. Back: No spinal tenderness. No costovertebral tenderness. Male : Normal genitalia with no discharge or lesions. Skin: Warm, dry with normal turgor. Normal color with no rashes, no lesions, and no evidence of cellulitis. MS/ Extremity: Pulses equal, no cyanosis. Neurovascular intact. Full, normal range of motion. Neuro: Patient is obtunded, examination is limited secondary to lethargy 04:22 ECG was reviewed by the Attending Physician. EKG at 01:18 EKG reveals sinus sp4 tachycardia rate 120 with PACs Vital Signs: 01:22 BP 58 / 41; Pulse 121; Resp 17 S; Temp 97.8(T); Pulse Ox 91% on R/A; Weight 93.5 kg; ha1 Height 5 ft. 9 in. ; 02:05 BP 77 / 66; Pulse 104; Resp 18; Pulse Ox 100% on R/A; kj2 02:19 BP 72 / 54; Pulse 106; Resp 16; Temp 97.8; Pulse Ox 100% on BiPAP; Pain 0/10; bm8 02:54 BP 71 / 53; Pulse 117; Resp 17 S; Pulse Ox 100% on R/A; ha1 03:00 BP 74 / 58; Pulse 117; Resp 17 S; Pulse Ox 100% on R/A; ha1 03:30 BP 71 / 49; Pulse 117; Resp 17 S; Pulse Ox 100% on BiPAP; ha1 03:50 BP 81 / 59; Pulse 110; Resp 16 S; Pulse Ox 100% on BiPAP; ha1 04:00 BP 88 / 62; Pulse 111; Resp 16; Temp 97.8; Pulse Ox 99% on bipap; Pain 0/10; ha1 04:06 BP 79 / 57; Pulse 114; Resp 16 S; Pulse Ox 99% on R/A; ha1 04:23 BP 88 / 60; Pulse 114; Resp 16 S; Pulse Ox 100% on BiPAP; ha1 05:00 BP 115 / 71; Pulse 122; Resp 16; Pulse Ox 96% on Bi-pap; kj2 05:10 BP 109 / 72; Pulse 126; Resp 20 (vent); Pulse Ox 96% ; kj2 05:20 BP 100 / 71; Pulse 124; Resp 18; Pulse Ox 97% ; kj2 05:30 BP 97 / 63; Pulse 121; Resp 20 A; Pulse Ox 97% on vent; kj2 05:45 BP 102 / 67; Pulse 129; Resp 20; Pulse Ox 91% on vent; kj2 06:00 BP 94 / 62; Pulse 122; Resp 20 A; Pulse Ox 93% on vent; kj2 06:23 BP 95 / 63; Pulse 126; Resp 16; Temp 99.7; Pulse Ox 94% on ETT vent; FiO2 100 %; Pain bm8 0/10; 07:10 BP 100 / 68; Pulse 126; Resp 18 A; Temp 99.3(Ca); Pulse Ox 92% on ETT vent; FiO2 100 %; ph 07:50 BP 111 / 87; Pulse 117; Resp 18 A; Temp 99(Ca); Pulse Ox 96% on ETT vent; FiO2 100 %; aa5 08:15 BP 116 / 78; Pulse 115; Resp 18 A; Temp 99(Ca); Pulse Ox 97% on ETT vent; FiO2 100 %; aa5 01:22 Body Mass Index 30.44 (93.50 kg, 175.26 cm) ha1 02:19 Pain Scale: Adult bm8 04:00 Pain Scale: Adult ha1 06:23 Pain Scale: Adult bm8 Elisha Coma Score: 02:19 Eye Response: to pain(2). Motor Response: localizes pain(5). Verbal Response: bm8 oriented(5). Total: 12. 04:08 Eye Response: to voice(3). Motor Response: obeys commands(6). Verbal Response: ha1 oriented(5). Total: 14. Ventilator: 05:05 Fi02: 100%; T.V.: 500ml; Peep: 5cm; ET tube: 8 fr (Oral); ha1 Procedures: 05:12 Intubation: Ventilated with 100% NRB prior to procedure. O2 saturation prior to sp4 procedure was 94 %. Intubated [place] scope assisted intubation using S4 blade with 8.0 mm ETT. was successful on first attempt. Ventilated with Ambu bag. ventilator. Tube secured with ETT newman at center of mouth measured 26 cm at lip. Placement verified by CXR, CO2 detector with (+) color change, auscultating bilateral breath sounds, O2 saturation after procedure was 99 %. Patient tolerated well, Patient intubated for hypoxemia. Central Line: the site was prepped with Betadine, in sterile fashion, a triple lumen catheter was inserted, in the left internal jugular vein, in 1 attempts. placement was verified, by CXR, by blood return, Ultrasound-guided central line, the site was dressed with 4X4s, Tegaderm, using sterile technique, the patient tolerated the procedure, well, Ultrasound-guided central line placed for persistent hypotension. MDM: 01:29 Patient medically screened. sp4 05:16 Differential Diagnosis: cardiac arrhythmia, drug effect, idiopathic syncope, seizure, sp4 sepsis, vasovagal episode. Data reviewed: vital signs, nurses notes, EMS record, lab test result(s), EKG, radiologic studies, CT scan, plain films. Consideration of Admission/Observation Patient was admitted/placed on observation. Escalation of care including admission/observation considered. Management of patient was discussed with the following: Hospitalist: Michelle TREJO . 06:28 ED course: XR CHEST 1 VIEW CLINICAL INDICATION: Chest pain COMPARISON: None FINDINGS: sp4 LUNGS/PLEURAL SPACES: Prominence of interstitial opacities in both lungs may represent vascular congestion, subsegmental atelectasis or interstitial edema. No focal airspace consolidation. No pleural effusion. No pneumothorax. HEART/MEDIASTINUM: Within normal range. BONES/UPPER ABDOMEN/SOFT TISSUES: No acute findings. IMPRESSION: Prominence of interstitial opacities in both lungs may represent vascular congestion, subsegmental atelectasis or interstitial edema. No focal airspace consolidation.. ED course: XR CHEST 1 VIEW CLINICAL INDICATION: Left central venous line placement. COMPARISON: XR Chest 01/10/2024, 1:59 AM. FINDINGS: SUPPORT DEVICES: Left IJ central venous catheter terminates over SVC. LUNGS/PLEURAL SPACES: Prominent interstitial lung markings have mildly improved secondary to better inflation. No pleural effusion. No pneumothorax. HEART/MEDIASTINUM: Within normal range. BONES/UPPER ABDOMEN/SOFT TISSUES: No acute findings. IMPRESSION: Prominent interstitial lung markings have mildly improved secondary to better inflation. ED course: CLINICAL HISTORY: Post ETT. COMPARISON: XR Chest 01/10/2024 4:39:11 AM. TECHNIQUE: XR CHEST 1 VIEW 01/10/2024 5:10 AM CDT FINDINGS: The heart is mildly enlarged. There are mild interstitial changes within both lungs. There is no pleural effusion. There is no pneumothorax. There are no acute osseous findings. Endotracheal tube tip is in the mid trachea. NG tube tip is in the stomach. Left central line is unchanged. IMPRESSION: Relatively little change following intubation.. 06:49 ED course: CLINICAL HISTORY: AMS. COMPARISON: None. TECHNIQUE: CT HEAD WITHOUT IV sp4 CONTRAST on 01/10/2024 1:26 AM CDT This exam was performed according to our departmental dose-optimization program, which includes automated exposure control, adjustment of the mA and/or kV according to patient size and/or use of iterative reconstruction technique. FINDINGS: There is no acute hemorrhage, mass effect or midline shift. Chen-white differentiation is preserved. There is no hydrocephalus. There is no significant volume loss for age. The calvarium is intact. Orbits and globes are unremarkable. The paranasal sinuses are clear. Mastoid air cells are clear. IMPRESSION: No acute intracranial findings. Electronically signed by: Refugio Jeff MD. 06:56 ED course: CLINICAL HISTORY: Sepsis, r/o pneumonia. COMPARISON: XR Chest 01/10/2024. sp4 TECHNIQUE: CT CHESTABDOMEN PELVIS WITHOUT IV CONTRAST on 01/10/2024 3:37 AM CDT This exam was performed according to our departmental dose-optimization program, which includes automated exposure control, adjustment of the mA and/or kV according to patient size and/or use of iterative reconstruction technique. FINDINGS: Chest: The heart is enlarged. There is no pericardial effusion. Intrathoracic lymph nodes are not enlarged. Endotracheal tube tip is in the mid to lower trachea. NG tube tip is in the stomach. Left central line tip is in the upper SVC. There is no pleural effusion, pleural thickening or pneumothorax. Central airways are patent. There is extensive dependent bilateral airspace disease. Abdomen: The liver is normal in appearance. There is no biliary dilatation. Gallbladder is normal in appearance. The pancreas and spleen are normal in appearance. The adrenal glands and kidneys are unremarkable. Abdominal aorta is normal in course and caliber without aneurysm. There is no free air. There is no retroperitoneal adenopathy. Pelvis: There is moderate diverticulosis of the distal colon. Urinary bladder contains a [place] catheter. There is no free fluid. Appendix is normal. There are bilateral inguinal hernia repairs. Skeleton: There are no acute osseous findings. No suspicious bony lesions. IMPRESSION: Extensive bilateral pneumonia. No definite acute inflammatory process in the abdomen or pelvis.. 07:16 ED course: EXAM: CT neck without intravenous contrast CLINICAL DATA: 53 years Male sp4 tonsillitis. TECHNICAL DATA: Axial CT imaging of the soft tissues of the neck were performed without intravenous contrast followed by sagittal and coronal reconstructed images. The CT study is performed according to ALARA (as low as reasonably achievable) or ALARA/IMAGE GENTLY, with automatic adjustment of mA and/or kV according to patient size. Performed on: 01/10/2024 at 3:54 AM Comparisons: No prior studies were available for comparison.. FINDINGS: Limitations: Overall evaluation is limited without intravenous contrast. The visualized portions of the brain and orbits are normal. There is fullness of the nasopharyngeal soft tissues likely related to intubation. The visualized portions of the oral cavity are grossly unremarkable. Orotracheal and orogastric tubes are present. The oropharynx is grossly unremarkable. The parapharyngeal fat planes are preserved. There is a partially imaged left IJ central venous catheter. The hypopharynx is unremarkable. The epiglottis and aryepiglottic folds are normal. The vallecula and pyriform sinuses are grossly normal. The preepiglottic fat is preserved. The thyroid, cricoid and arytenoid cartilages are normal. The region of the false and true vocal cords is normal as is the anterior commissure. The parotid and submandibular glands are grossly within normal limits. No intrinsic mass lesions are seen. . There is infiltration of the fat surrounding the right carotid sheath and extending along the right side of the neck. There are right-sided level II cervical lymph nodes which are likely reactive inflammatory in nature. There is air in the soft tissues at the level of the thoracic inlet bilaterally which is likely intravascular in nature likely related to air in an IV line. There is trace mucosal thickening of the ethmoid sinuses. The remainder of the paranasal sinuses and mastoid air cells and middle ear cavities are clear. The thyroid gland is normal in size and configuration. The thoracic inlet is normal. There are atelectatic changes in the dependent upper lobes. No acute osseous abnormalities are identified. IMPRESSION: 1. Overall evaluation is limited without intravenous contrast. 2. There is infiltration of the fat surrounding the right carotid sheath and extending along the right side of the neck. There are rightsided level II cervical lymph nodes which are likely reactive inflammatory in nature. Patency of the jugular vein cannot be determined on this examination. 3. There is air in the soft tissues at the level of the thoracic inlet bilaterally which is likely intravascular in nature likely related to air in an IV line. 4. There is fullness of the nasopharyngeal soft tissues likely related to intubation. 5. There are atelectatic changes in the dependent upper lobes. 6. No definite CT evidence to suggest tonsillitis on this examination. Electronically signed by: Delmy Perez DO 01/10/2024 07:03 AM. 01/09 01:26 Order name: [facility] 01/09 01:26 Order name: CBC with Diff; Complete Time: 04:25 sp4 01/09 01:26 Order name: Lactate w/ 2H reflex if indic.; Complete Time: 03:36 sp4 01/09 01:26 Order name: Protime (+inr); Complete Time: 02:49 sp4 01/09 01:26 Order name: Ptt, Activated; Complete Time: 02:49 sp4 01/09 01:26 Order name: Urinalysis w/ reflexes; Complete Time: 06:27 sp4 01/09 01:26 Order name: ABG; Complete Time: 06:27 sp4 01/09 01:27 Order name: Alcohol Level; Complete Time: 03:36 sp4 01/09 01:27 Order name: Urine Drug Screen; Complete Time: 06:27 sp4 01/09 01:29 Order name: CRP; Complete Time: 03:36 sp4 01/09 01:29 Order name: TSH; Complete Time: 03:36 sp4 01/09 01:29 Order name: T4 Free; Complete Time: 03:36 sp4 01/09 02:11 Order name: Glucose, Ancillary Testing; Complete Time: 02:49 EDMS 01/09 02:25 Order name: Comprehensive Metabolic Panel; Complete Time: 03:36 EDMS 01/09 02:44 Order name: Manual Differential; Complete Time: 04:25 EDMS 01/09 04:17 Order name: Lactate w/ 2H reflex if indic.; Complete Time: 06:27 ha1 01/09 04:26 Order name: Troponin High Sensitivity; Complete Time: 06:27 sp4 01/09 04:26 Order name: BNP; Complete Time: 06:27 sp4 01/09 05:22 Order name: ABG; Complete Time: 06:38 sp4 01/09 07:39 Order name: Packed RBC Leukored EDMS 01/09 07:39 Order name: BB Add On EDMS 01/09 07:39 Order name: Type and Screen EDMS 01/09 07:39 Order name: Hematocrit EDMS 01/09 07:39 Order name: Hemoglobin EDMS 01/09 07:39 Order name: Protime (+INR) EDMS 01/09 07:39 Order name: CBC with Automated Diff EDMS 01/09 07:39 Order name: CBC with Automated Diff EDMS 01/09 07:39 Order name: CBC with Automated Diff EDMS 01/09 07:39 Order name: CBC with Automated Diff EDMS 01/09 07:39 Order name: Comprehensive Metabolic Panel EDMS 01/09 07:39 Order name: Comprehensive Metabolic Panel EDMS 01/09 07:39 Order name: Comprehensive Metabolic Panel EDMS 01/09 07:39 Order name: Comprehensive Metabolic Panel EDMS 01/09 07:39 Order name: Lipid Profile EDMS 01/09 07:39 Order name: Lipid Profile EDMS 01/09 07:39 Order name: Magnesium EDMS 01/09 07:39 Order name: Magnesium EDMS 01/09 07:39 Order name: Phosphorus EDMS 01/09 07:39 Order name: Phosphorus EDMS 01/09 07:39 Order name: Troponin High Sensitivity EDMS 01/09 07:39 Order name: Troponin High Sensitivity EDMS 01/09 07:39 Order name: Troponin High Sensitivity EDMS 01/09 07:39 Order name: Troponin High Sensitivity EDMS 01/09 07:39 Order name: ABG Arterial Blood Gas EDMS 01/09 07:39 Order name: Hematocrit EDMS 01/09 07:39 Order name: Hemoglobin EDMS 01/09 07:41 Order name: ABO/RH typing EDMS 01/09 07:41 Order name: Antibody Screen EDMS 01/09 07:41 Order name: CBC with Automated Diff EDMS 01/09 07:41 Order name: Magnesium EDMS 01/09 07:41 Order name: Potassium EDMS 01/09 01:26 Order name: Chest Single View XRAY sp4 01/09 01:26 Order name: CT Head Brain wo Cont sp4 01/09 03:39 Order name: Soft Tissue Neck Wo Contr EDMS 01/09 03:40 Order name: Chest Abd Pelvis Wo Con EDMS 01/09 04:19 Order name: Chest Single View XRAY sp4 01/09 05:10 Order name: Chest Single View XRAY rv1 01/09 07:39 Order name: Abdomen 1 View (KUB) EDTX 01/09 07:39 Order name: CONS Physician Consult EDTX 01/09 01:26 Order name: Accucheck; Complete Time: 02:06 sp4 01/09 01:26 Order name: Cardiac monitoring; Complete Time: sp4 01/09 01:26 Order name: EKG - Nurse/Tech; Complete Time: sp4 01/09 01:26 Order name: IV Saline Lock - Large Bore; Complete Time: sp4 01/09 01:26 Order name: Labs collected and sent; Complete Time: sp4 01/09 01:26 Order name: O2 Per Protocol; Complete Time: sp4 01/09 01:26 Order name: O2 Sat Monitoring; Complete Time: sp4 01/09 01:26 Order name: Vital Signs; Complete Time: sp4 01/09 03:15 Order name: Central Line Dressing Kit; Complete Time: 04:04 sp4 01/09 03:15 Order name: Central Line Kit; Complete Time: 04:04 sp4 01/09 03:15 Order name: Chlorhexidine prep; Complete Time: 04:04 sp4 01/09 03:15 Order name: Consent for central line completed; Complete Time: 04:04 sp4 01/09 03:15 Order name: Line Caps x3; Complete Time: 04:04 sp4 01/09 03:15 Order name: NS Flushes x3; Complete Time: 04:04 sp4 01/09 03:15 Order name: Sterile Gloves; Complete Time: 04:04 sp4 01/09 03:15 Order name: Sterile Probe Cover; Complete Time: 04:04 sp4 01/09 05:22 Order name: Misc. Order: place on the Ventilator; Complete Time: 06:03 sp4 EC:22 Rate is 120 beats/min. Rhythm is regular, Sinus tachycardia with PACs. QRS [place] is sp4 Normal. OR interval is normal. QRS interval is normal. QT interval is normal. No Q waves. T waves are Normal. No ST changes noted. Clinical impression: No evidence of ischemia. Interpreted by me. Reviewed by me. Administered Medications: 01:30 Drug: NS 0.9% IV 1000 ml IV at 1 bolus Per protocol; 1000 mL bolus Route: IV; Rate: 1 ha1 bolus; Site: right antecubital; 04:08 Follow up: Response: No adverse reaction; IV Status: Completed infusion; IV Intake: ha1 1000ml 01:30 Drug: NS 0.9% IV 1000 ml IV at 1 bolus Per protocol; 1000 mL bolus Route: IV; Rate: 1 ha1 bolus; Site: right antecubital; 04:07 Follow up: Response: No adverse reaction; IV Status: Completed infusion; IV Intake: ha1 1000ml 02:15 Drug: vancoMYCIN IVPB 1 grams IVPB once over 2 hrs Route: IVPB; Infused Over: 2 hrs; ha1 Site: left forearm; 04:05 Follow up: Response: No adverse reaction; IV Status: Completed infusion; IV Intake: ha1 250ml 02:15 Drug: Albumin IVPB 50 grams 100 ml IVPB once; (Note: Albumin 25% concentration) Volume: ha1 100 ml; Route: IVPB; Site: right antecubital; 04:06 Follow up: Response: No adverse reaction; IV Status: Completed infusion; IV Intake: ha1 100ml 02:19 Drug: Piperacillin-Tazobactam IVPB 3.375 grams IVPB once over 60 mins; (mix in NS 100 bm8 mL) Route: IVPB; Infused Over: 60 mins; Site: left forearm; 04:07 Follow up: Response: No adverse reaction; IV Status: Completed infusion; IV Intake: ha1 100ml 02:19 Drug: Ondansetron IVP 4 mg IVP once; over 2 minutes Route: IVP; Site: left forearm; bm8 04:06 Follow up: Response: No adverse reaction ha1 02:24 Drug: NS 0.9% IV 1000 ml IV at 125 ml/hr continuous Route: IV; Rate: 125 ml/hr; Site: bm8 left forearm; 04:07 Follow up: Response: No adverse reaction; IV Status: Completed infusion; IV Intake: ha1 1000ml ; verbal order to open wide 04:03 Drug: Lidocaine Infiltration (1 %) 20 ml 20 ml Infiltration once; to bedside {Note: by [facility] provider.} Volume: 20 ml; Route: Infiltration; Site: affected area; 04:06 Follow up: Response: No adverse reaction ha1 04:04 Drug: NS 0.9% IV 1000 ml IV at 1 bolus Per protocol; 1000 mL bolus Route: IV; Rate: 1 ha1 bolus; Site: left forearm; 04:06 Follow up: Response: No adverse reaction; IV Status: Completed infusion; IV Intake: ha1 1000ml 04:04 Drug: Mupirocin Topical Ointment 2 % 1 application Topical once Route: Topical; Site: ha1 affected area; 04:06 Follow up: Response: No adverse reaction ha1 04:04 Drug: Norepinephrine IV 0.1 mcg/kg/min IV at calculated rate See Administration [facility] Instructions; (Standard concentration 4 mg / 250 mL D5W); Recommended max rate 3 mcg/kg/min; Titrate 0.05 mcg/kg/min as often as every 5 minutes to achieve goal (see titration policy); Goal parameter MAP greater than 65 mmHg. Route: IV; Rate: calculated rate; Site: left forearm; 06:22 Follow up: Response: No adverse reaction; No change in condition; has been titrted to bm8 max 30 mcg/hr 07:05 Follow up: Current rate 30mcg/min aa5 08:10 Follow up: Response: Infusion continued upon admission aa5 04:25 Drug: Solu-CORTEF IVP 100 mg IVP once Route: IVP; Site: right antecubital; kj2 04:47 Follow up: Response: No adverse reaction kj2 04:30 Drug: Calcium Gluconate IVPB 2 grams IVPB once over 60 mins; (mix in NS 100 mL) Route: ha1 IVPB; Infused Over: 60 mins; Site: left jugular; 06:17 Follow up: Response: No adverse reaction; IV Status: Completed infusion; IV Intake: bm8 100ml 04:30 Drug: Sodium Bicarbonate IVP 1 amp IVP once; (50 mL); equals 50 mEq Route: IVP; Site: ha1 right antecubital; 06:16 Follow up: Response: No adverse reaction bm8 04:38 Drug: DOPamine 1 mcg/kg/min IV at calculated rate continuous {Note: central.} Route: ha1 IV; Rate: calculated rate; Site: Other; 06:20 Follow up: titraited up to 10 mcg bm8 07:05 Follow up: Current rate as 10mcg/hr aa5 08:10 Follow up: IV Status: Infusion continued upon admission aa5 04:45 Drug: Calcium Chloride IVP 1 grams IVP once Route: IVP; Site: left jugular; ha1 06:16 Follow up: Response: No adverse reaction bm8 04:47 Drug: Sodium Bicarbonate IVP 1 amp IVP once; (50 mL); equals 50 mEq {Note: central.} ha1 Route: IVP; Site: Other; 06:19 Follow up: Response: No adverse reaction bm8 05:03 Drug: Midazolam IVP or IV 0.01 mg/kg/h IV at calculated rate See Administration ha1 Instructions; (Standard concentration: 100 mg / 100 mL NS); Recommended max rate 0.1 mg/kg/hr; Titrate 0.01 mg/kg/hr as often as every 30 minutes to achieve goal (see titration policy); Goal parameter RASS 0 to -2 Route: IV; Rate: mg/hr; Site: left jugular; 05:30 Follow up: Response: No adverse reaction; RASS: Deep sedation (-4); IV Status: Infusion ha1 continued 07:05 Follow up: Current rate is 2mg/hr aa5 08:10 Follow up: IV Status: Infusion continued upon admission aa5 05:20 Drug: Acetaminophen OR Suppository 325 mg OR once Route: OR; ha1 06:16 Follow up: Response: No adverse reaction bm8 05:20 Drug: Acetaminophen OR Suppository 650 mg OR once Route: OR; ha1 06:16 Follow up: Response: No adverse reaction bm8 06:19 Drug: Potassium Chloride IV 20 mEq IV at calculated rate once; administer over 1-2 bm8 hours {Note: central.} Route: IV; Rate: calculated rate; Site: Other; 08:15 Follow up: Response: No adverse reaction; IV Status: Completed infusion aa5 06:57 Drug: Cefepime IVPB 2 grams IVPB at 200 ml/hr once over 30 mins; (mix in NS 100 mL) bm8 Route: IVPB; Rate: 200 ml/hr; Infused Over: 30 mins; Site: right antecubital; 07:27 Follow up: Response: No adverse reaction; IV Status: Completed infusion aa5 12:49 Not Given (Pt well sedated with Versed ): fentanyl (pf)25 mcg/kg/h IV at calculated aa5 rate See Administration Instructions; (Standard concentration 500 mcg / 50 mL NS [10 mcg / 1 mL); Recommended max rate 4 mcg/kg/hr; Titrate 0.25 mcg/kg/hr as often as every 3 minutes to achieve goal (see titration policy); Goal parameter RASS score 0 to -2 Disposition Summary: 01/10/24 05:16 Hospitalization Ordered Notes: Hospitalization Status: Inpatient Admission sp4 Provider: Prince ana Martinez Location: Intensive Care Unit sp4 Condition: Critical sp4 Problem: new sp4 Symptoms: have improved sp4 Bed/Room Type: Standard sp4 Room Assignment: 4-(01/10/24 07:12) [id number] Diagnosis - Severe sepsis with septic shock sp4 - Acute tonsillitis, unspecified sp4 - Acute renal failure, septic shock, persistent hypertension, altered mental status, sp4 hypokalemia, hypocalcemia - Acute bilateral pneumonia sp4 Forms: - Medication Reconciliation Form sp4 - SBAR form sp4 - Leadership Thank You Letter sp4 Critical care time excluding procedures: 05:15 Critical care time: Bedside Care: 46 minutes, Consultation: 12 minutes, Family sp4 Intervention: 12 minutes. Total time: 70 minutes Signatures: Dispatcher [employer] EDYael Harris, RN RN lg3 Jess Null, RN RN ha1 Bryson Arnold MD MD sp4 Alyssa Hernandes 12 José Rocha, RN RN bm8 Magaly Jacobson RN RN kj2 Myriam Castaneda RN aa5 Corrections: (The following items were deleted from the chart) 01: 01:26 BLOOD CULTURE*+BA.LAB.BRZ ordered. EDMS EDMS : 01:26 CBC+H.LAB.BRZ ordered. EDMS EDMS 01:27 01:26 LACTATE+C.LAB.BRZ ordered. EDMS EDMS : 01:26 PROTIME (+INR)+COAG.LAB.BRZ ordered. EDMS EDMS 01:27 01:26 PTT, ACTIVATED+COAG.LAB.BRZ ordered. EDMS EDMS 01:27 01:26 Urinalysis+U.LAB.BRZ ordered. EDMS EDMS 01:27 01:27 Chest Single View+RAD.RAD.BRZ ordered. EDMS EDMS 01:27 01:27 Arterial Blood Gas+RC.LAB.BRZ ordered. EDMS EDMS 01:27 01:27 Head Brain Wo Cont+CT.RAD.BRZ ordered. EDMS EDMS 01:27 01:27 ETHANOL+C.LAB.BRZ ordered. EDMS EDMS 01:29 01:29 BiPap ([employer] Only)+RC.RAD.BRZ ordered. EDMS EDMS 01:29 01:29 C-REACTIVE PROTEIN+C.LAB.BRZ ordered. EDMS EDMS 01:29 01:29 THYROID STIMULAT HORMONE+C.LAB.BRZ ordered. EDMS EDMS 01:29 01:29 T4 FREE+C.LAB.BRZ ordered. EDMS EDMS 02:24 01:26 COMPREHENSIVE METABOLIC PANEL+C.LAB.BRZ ordered. EDMS EDMS 03:38 01:26 Soft Tissue Neck W/Contr+CT.RAD.BRZ ordered. EDMS EDMS 04:26 01:26 [place] ordered. sp4 ha1 05:11 05:11 Chest Single View+RAD.RAD.BRZ ordered. EDMS EDMS 05:20 05:20 Chest Single View+RAD.RAD.BRZ ordered. EDMS EDMS 07:12 05:16 sp4 jr12
--- NOTE | 2024-01-10 05:17 | ER ---
Nurse's Notes [facility] Name: Elliott Olsen Age: 53 yrs Sex: Male : 1970 Arrival Date: 01/10/2024 Time: 01:15 Bed 4 Private MD: Diagnosis: Severe sepsis with septic shock;Acute tonsillitis, unspecified;Acute renal failure, septic shock, persistent hypertension, altered mental status, hypokalemia, hypocalcemia;Acute bilateral pneumonia Presentation: 01/09 01:22 Chief complaint: EMS states: NEAR SYNCOPE EPISODE, VERY WEAK, UNABLE TO WALK. HAS BEEN ha1 DEALING WITH TONSILLITIS FOR THE PAST COUPLE OF DAYS. ELEVATED BP FORGOT TO TAKE HIS MEDS TODAY. : Coronavirus screen: At this time, the client does not indicate any symptoms associated ha1 with coronavirus-19. Ebola Screen: No symptoms or risks identified at this time. Initial Sepsis Screen: Does the patient meet any 2 criteria? Systolic BP < 90 mmHg. HR > 90 bpm. Yes Does the patient have a suspected source of infection? No. Patient's initial sepsis screen is negative. Risk Assessment: Do you want to hurt yourself or someone else? Patient reports no desire to harm self or others. Onset of symptoms was January 10, 2024. : Method Of Arrival: EMS: [facility] :22 Acuity: ALEKSEY 2 ha1 Triage Assessment: :22 General: Appears ill, Behavior is calm, drowsy. Pain: Denies pain. EENT: Throat is ha1 reddened has enlarged tonsils on right. Neuro: Level of Consciousness is awake, lethargic, Oriented to person, time, situation. Neuro: Reports weakness GENERALIZED. Cardiovascular: Heart tones S1 S2 present Capillary refill < 3 seconds Patient's skin is warm and dry. Rhythm is sinus tachycardia. Respiratory: Airway is patent Respiratory effort is even, unlabored, Respiratory pattern is regular, symmetrical. GI:. : No signs and/or symptoms were reported regarding the genitourinary system. Derm: Skin is normal. Musculoskeletal: Circulation, motion, and sensation intact. Historical: - Allergies: : PENICILLINS; ha1 : Sulfa (Sulfonamide Antibiotics); ha1 - PMHx: : Hypertensive disorder; BACK PAIN CHRONIC; ha1 - PSHx: 01:22 hernia repair x3; ha1 - Immunization history:: Adult Immunizations unknown. - Infectious Disease History:: Denies. - Social history:: Smoking status: unknown. Screenin:40 [facility] ED Fall Risk Assessment (Adult) History of falling in the last 3 months, ha1 including since admission Yes- single mechanical fall (1 pt) Confusion or Disorientation Yes (5 pts) Intoxicated or Sedated No (0 pts) Impaired Gait Yes (1 pt) Mobility Assist Device Used No (0 pt) Altered Elimination Yes (1 pt) Score/Fall Risk Level 3 or more points = High Risk Oriented to surroundings, Maintained a safe environment, Educated pt \T\ family on fall prevention, incl call for assistance when getting out of bed, Hourly rounding (assess needs \T\ fall precautionary measures) done. Abuse screen: Denies threats or abuse. Denies injuries from another. Nutritional screening: No deficits noted. Tuberculosis screening: No symptoms or risk factors identified. Assessment: :22 Reassessment: SEE TRIAGE ASSESSMENT. NOTIFIED DR. ARNOLD OF LOW BP. ha1 02:06 Reassessment: Patient appears in no apparent distress at this time. Patient is alert, kj2 oriented x 3, equal unlabored respirations, skin warm/dry/pink. 02:19 General: Appears in no apparent distress. comfortable, Behavior is cooperative, drowsy. bm8 Pain: Denies pain. Neuro: Level of Consciousness is lethargic, listless. Cardiovascular: Reports syncope, Capillary refill < 3 seconds in bilateral fingers toes Patient's skin is warm and dry. Rhythm is sinus tachycardia. Respiratory: Airway is patent Respiratory effort is even, relaxed, weak, Respiratory pattern is regular, symmetrical, hypoventilation Breath sounds are clear bilaterally. GI: No signs and/or symptoms were reported involving the gastrointestinal system. : No signs and/or symptoms were reported regarding the genitourinary system. EENT: Throat is reddened has enlarged tonsils bilaterally with gag reflex present. Derm: No signs and/or symptoms reported regarding the dermatologic system. Musculoskeletal: No signs and/or symptoms reported regarding the musculoskeletal system. 03:10 Reassessment: Patient and/or family updated on plan of care and expected duration. Pain ha1 level reassessed. 03:10 Respiratory: Airway is patent Respiratory effort is even, unlabored, Respiratory ha1 pattern is regular, symmetrical. 04:08 Reassessment: No changes from previously documented assessment. Patient and/or family ha1 updated on plan of care and expected duration. Pain level reassessed. Patient is alert, oriented x 3, equal unlabored respirations, skin warm/dry/pink. decision made to start central line made. 05:10 Respiratory: Airway via oral intubation Respiratory effort is even, unlabored, ha1 Respiratory pattern is regular, symmetrical, Breath sounds are clear bilaterally. 06:23 Reassessment: Patient appears in no apparent distress at this time. Patient and/or bm8 family updated on plan of care and expected duration. Pain level reassessed. Patient is alert, oriented x 3, equal unlabored respirations, skin warm/dry/pink. Pain: Denies pain. Neuro: Level of Consciousness is pt intubated. Cardiovascular: Heart tones S1 S2 present Capillary refill < 3 seconds in bilateral fingers toes Patient's skin is warm and dry. Rhythm is sinus tachycardia. Respiratory: Ventilator assessment: ET Tube: 8.0 26 cm at lip Ventilator Mode: Assist Control (AC) Tidal Volume: 500 Respiratory Rate: 16 FiO2: 100%. PEEP: 5 HOB > 30 degrees. Breath sounds are clear bilaterally. GI: No signs and/or symptoms were reported involving the gastrointestinal system. : pt has temp chappell in place and draining to gravity. EENT: No signs and/or symptoms were reported regarding the EENT system. Derm: No signs and/or symptoms reported regarding the dermatologic system. Musculoskeletal: No signs and/or symptoms reported regarding the musculoskeletal system. 06:40 Reassessment: Patient appears in no apparent distress at this time. Patient and/or kj2 family updated on plan of care and expected duration. Pain level reassessed. Patient is alert, oriented x 3, equal unlabored respirations, skin warm/dry/pink. 07:05 Pain: Unable to use pain scale. Patient is intubated. Neuro: Level of Consciousness is aa5 sedated . Cardiovascular: Heart tones S1 S2 present Edema is absent. Rhythm is sinus tachycardia. Respiratory: Airway via oral intubation Respiratory effort is assisted Respiratory pattern is regular, symmetrical, Breath sounds are clear bilaterally. GI: Abdomen is round non-distended, Bowel sounds present X 4 quads. Abd is soft X 4 quads. : Chappell in place to gravity drainage. EENT: Throat has enlarged tonsils. Derm: Skin is pink, warm \T\ dry. Musculoskeletal: Range of motion: intact in all extremities. 07:05 Reassessment: Triple lumen central line noted to Left IJ, 20 G to R AC, 20 G to L FA, aa5 NG tube noted to low intermittent suction, ET tube at 26 at the lips. . 07:15 Reassessment: Received ICU bed assignment, awaiting admission orders before calling aa report to ICU.. 07:50 Reassessment: Report given to ICU nurse, JOSE CARLOS Parker. . aa5 08:10 Reassessment: Awaiting RT for transfer to ICU. . aa5 Vital Signs: 01:22 BP 58 / 41; Pulse 121; Resp 17 S; Temp 97.8(T); Pulse Ox 91% on R/A; Weight 93.5 kg; ha1 Height 5 ft. 9 in. ; 02:05 BP 77 / 66; Pulse 104; Resp 18; Pulse Ox 100% on R/A; kj2 02:19 BP 72 / 54; Pulse 106; Resp 16; Temp 97.8; Pulse Ox 100% on BiPAP; Pain 0/10; bm8 02:54 BP 71 / 53; Pulse 117; Resp 17 S; Pulse Ox 100% on R/A; ha1 03:00 BP 74 / 58; Pulse 117; Resp 17 S; Pulse Ox 100% on R/A; ha1 03:30 BP 71 / 49; Pulse 117; Resp 17 S; Pulse Ox 100% on BiPAP; ha1 03:50 BP 81 / 59; Pulse 110; Resp 16 S; Pulse Ox 100% on BiPAP; ha1 04:00 BP 88 / 62; Pulse 111; Resp 16; Temp 97.8; Pulse Ox 99% on bipap; Pain 0/10; ha1 04:06 BP 79 / 57; Pulse 114; Resp 16 S; Pulse Ox 99% on R/A; ha1 04:23 BP 88 / 60; Pulse 114; Resp 16 S; Pulse Ox 100% on BiPAP; ha1 05:00 BP 115 / 71; Pulse 122; Resp 16; Pulse Ox 96% on Bi-pap; kj2 05:10 BP 109 / 72; Pulse 126; Resp 20 (vent); Pulse Ox 96% ; kj2 05:20 BP 100 / 71; Pulse 124; Resp 18; Pulse Ox 97% ; kj2 05:30 BP 97 / 63; Pulse 121; Resp 20 A; Pulse Ox 97% on vent; kj2 05:45 BP 102 / 67; Pulse 129; Resp 20; Pulse Ox 91% on vent; kj2 06:00 BP 94 / 62; Pulse 122; Resp 20 A; Pulse Ox 93% on vent; kj2 06:23 BP 95 / 63; Pulse 126; Resp 16; Temp 99.7; Pulse Ox 94% on ETT vent; FiO2 100 %; Pain bm8 0/10; 07:10 BP 100 / 68; Pulse 126; Resp 18 A; Temp 99.3(Ca); Pulse Ox 92% on ETT vent; FiO2 100 %; ph 07:50 BP 111 / 87; Pulse 117; Resp 18 A; Temp 99(Ca); Pulse Ox 96% on ETT vent; FiO2 100 %; aa5 08:15 BP 116 / 78; Pulse 115; Resp 18 A; Temp 99(Ca); Pulse Ox 97% on ETT vent; FiO2 100 %; aa5 01:22 Body Mass Index 30.44 (93.50 kg, 175.26 cm) ha1 02:19 Pain Scale: Adult bm8 04:00 Pain Scale: Adult ha1 06:23 Pain Scale: Adult bm8 Independence Coma Score: 02:19 Eye Response: to pain(2). Motor Response: localizes pain(5). Verbal Response: bm8 oriented(5). Total: 12. 04:08 Eye Response: to voice(3). Motor Response: obeys commands(6). Verbal Response: ha1 oriented(5). Total: 14. ED Course: 01:22 Patient arrived in ED. rv1 01:22 Patient has correct armband on for positive identification. Placed in gown. Bed in low ha1 position. Call light in reach. Side rails up X2. 01:22 Arm band placed on right wrist. ha1 01:22 EKG completed in triage. Results shown to MD. ha1 01:25 Bryson Arnold MD is Attending Physician. sp4 01:25 Maintain EMS IV. Dressing intact. Good blood return noted. Site clean \T\ dry. Gauge \T\ bailey 1 site: 20 RAC. Flushed with 10 mL NS. 01:28 Jess Null, RN is Primary Nurse. ha1 01:36 Triage completed. ha1 01:44 CBC with Diff Sent. ha1 02:05 Chest Single View XRAY In Process Unspecified. EDMS 02:19 Client placed on continuous cardiac and pulse oximetry monitoring. NIBP monitoring bm8 applied. night monitor on. Pulse ox on. NIBP on. Door closed. Noise minimized. Warm blanket given. Pillow given. Verbal reassurance given. Head of bed elevated. 02:19 Inserted saline lock: 20 gauge in left forearm, using aseptic technique. Blood bm8 collected. Flushed with 10 mL NS. O2 via BIPAP. 04:08 Provided Education on: Procedure Consent, central line consent signed by . ha1 04:08 Assisted provider with central line placement. Set up central line tray. Triple lumen ha1 line placed in left internal jugular. Line placed by Bryson Arnold MD Placement verified by CXR, blood return, Dressed with Tegaderm, chg patch Blood was collected. Patient tolerated well. Patient \T\ family education about procedure, CLABSI prevention and S/S of infection? Yes. Time-out/Briefing performed prior to start of procedure? Yes. Was handwashing/sanitizing done immediately prior to procedure? Yes. Was patient positioned to in a way to prevent air embolism? Yes. Was procedure site sterilized? Yes, with chlorhexidine. Was the site allowed to dry? Yes. Was local anesthetic and/or sedation utilized? Yes. During the procedure, did the Practitioner(s) maintain a sterile field? Yes. Were unused ports clamped during insertion? Yes. Was a 2nd qualified MD obtained after 3 unsuccessful insertion attempts? No. Was blood aspirated from each lumen? Yes. After the procedure, did the Practitioner(s) clean the site and apply a sterile dressing? Yes. Assist ventilation pt placed on Bipap. 04:45 Chest Single View XRAY In Process Unspecified. EDMS 05:03 Assisted provider with intubation using 8.0 mm ETT via oral route. ET tube secured at ha1 26cm at the lips. Set up intubation tray. Intubated by Bryson Arnold MD Placement verified by CO2 detector w/ + color change, auscultating bilateral breath sounds, End-tidal CO2 montioring CXR, Patient tolerated well. 05:07 NGT: inserted 18 Fr. other via mouth verified placement of air over stomach, verified kj2 return of gastric contents, Placement verified by X-ray, to intermittent suction. Returned gastric contents. Patient tolerated well. 05:15 Prince Martinez MD is Hospitalizing Provider. sp4 05:16 Chappell cath inserted, using sterile technique, 16 Fr., by outside sales, balloon inflated, to ha1 gravity drainage, urine specimen collected. returned clear yellow urine. 05:27 Chest Single View XRAY In Process Unspecified. EDMS 05:55 CT Head Brain wo Cont In Process Unspecified. EDMS 05:55 Soft Tissue Neck Wo Contr In Process Unspecified. EDMS 05:55 Chest Abd Pelvis Wo Con In Process Unspecified. EDMS 07:05 Report received from JOSE CARLOS Mckenzie. aa5 07:07 Report given to JOSE CARLOS Miguel. bm8 07:09 Report given to JOSE CARLOS Keating. kj2 08:30 Patient admitted, IV remains in place. aa5 Administered Medications: 01:30 Drug: NS 0.9% IV 1000 ml IV at 1 bolus Per protocol; 1000 mL bolus Route: IV; Rate: 1 ha1 bolus; Site: right antecubital; 04:08 Follow up: Response: No adverse reaction; IV Status: Completed infusion; IV Intake: ha1 1000ml 01:30 Drug: NS 0.9% IV 1000 ml IV at 1 bolus Per protocol; 1000 mL bolus Route: IV; Rate: 1 ha1 bolus; Site: right antecubital; 04:07 Follow up: Response: No adverse reaction; IV Status: Completed infusion; IV Intake: ha1 1000ml 02:15 Drug: vancoMYCIN IVPB 1 grams IVPB once over 2 hrs Route: IVPB; Infused Over: 2 hrs; ha1 Site: left forearm; 04:05 Follow up: Response: No adverse reaction; IV Status: Completed infusion; IV Intake: ha1 250ml 02:15 Drug: Albumin IVPB 50 grams 100 ml IVPB once; (Note: Albumin 25% concentration) Volume: ha1 100 ml; Route: IVPB; Site: right antecubital; 04:06 Follow up: Response: No adverse reaction; IV Status: Completed infusion; IV Intake: ha1 100ml 02:19 Drug: Piperacillin-Tazobactam IVPB 3.375 grams IVPB once over 60 mins; (mix in NS 100 bm8 mL) Route: IVPB; Infused Over: 60 mins; Site: left forearm; 04:07 Follow up: Response: No adverse reaction; IV Status: Completed infusion; IV Intake: ha1 100ml 02:19 Drug: Ondansetron IVP 4 mg IVP once; over 2 minutes Route: IVP; Site: left forearm; bm8 04:06 Follow up: Response: No adverse reaction [facility] 02:24 Drug: NS 0.9% IV 1000 ml IV at 125 ml/hr continuous Route: IV; Rate: 125 ml/hr; Site: bm8 left forearm; 04:07 Follow up: Response: No adverse reaction; IV Status: Completed infusion; IV Intake: ha1 1000ml ; verbal order to open wide 04:03 Drug: Lidocaine Infiltration (1 %) 20 ml 20 ml Infiltration once; to bedside {Note: by 1 provider.} Volume: 20 ml; Route: Infiltration; Site: affected area; 04:06 Follow up: Response: No adverse reaction [facility] 04:04 Drug: NS 0.9% IV 1000 ml IV at 1 bolus Per protocol; 1000 mL bolus Route: IV; Rate: 1 ha1 bolus; Site: left forearm; 04:06 Follow up: Response: No adverse reaction; IV Status: Completed infusion; IV Intake: ha1 1000ml 04:04 Drug: Mupirocin Topical Ointment 2 % 1 application Topical once Route: Topical; Site: ha1 affected area; 04:06 Follow up: Response: No adverse reaction 1 04:04 Drug: Norepinephrine IV 0.1 mcg/kg/min IV at calculated rate See Administration ha1 Instructions; (Standard concentration 4 mg / 250 mL D5W); Recommended max rate 3 mcg/kg/min; Titrate 0.05 mcg/kg/min as often as every 5 minutes to achieve goal (see titration policy); Goal parameter MAP greater than 65 mmHg. Route: IV; Rate: calculated rate; Site: left forearm; 06:22 Follow up: Response: No adverse reaction; No change in condition; has been titrted to bm8 max 30 mcg/hr 07:05 Follow up: Current rate 30mcg/min aa5 08:10 Follow up: Response: Infusion continued upon admission aa5 04:25 Drug: Solu-CORTEF IVP 100 mg IVP once Route: IVP; Site: right antecubital; kj2 04:47 Follow up: Response: No adverse reaction kj2 04:30 Drug: Calcium Gluconate IVPB 2 grams IVPB once over 60 mins; (mix in NS 100 mL) Route: ha1 IVPB; Infused Over: 60 mins; Site: left jugular; 06:17 Follow up: Response: No adverse reaction; IV Status: Completed infusion; IV Intake: bm8 100ml 04:30 Drug: Sodium Bicarbonate IVP 1 amp IVP once; (50 mL); equals 50 mEq Route: IVP; Site: ha right antecubital; 06:16 Follow up: Response: No adverse reaction bm8 04:38 Drug: DOPamine 1 mcg/kg/min IV at calculated rate continuous {Note: central.} Route: ha1 IV; Rate: calculated rate; Site: Other; 06:20 Follow up: titraited up to 10 mcg bm8 07:05 Follow up: Current rate as 10mcg/hr aa5 08:10 Follow up: IV Status: Infusion continued upon admission aa5 04:45 Drug: Calcium Chloride IVP 1 grams IVP once Route: IVP; Site: left jugular; ha1 06:16 Follow up: Response: No adverse reaction bm8 04:47 Drug: Sodium Bicarbonate IVP 1 amp IVP once; (50 mL); equals 50 mEq {Note: central.} ha1 Route: IVP; Site: Other; 06:19 Follow up: Response: No adverse reaction bm8 05:03 Drug: Midazolam IVP or IV 0.01 mg/kg/h IV at calculated rate See Administration ha1 Instructions; (Standard concentration: 100 mg / 100 mL NS); Recommended max rate 0.1 mg/kg/hr; Titrate 0.01 mg/kg/hr as often as every 30 minutes to achieve goal (see titration policy); Goal parameter RASS 0 to -2 Route: IV; Rate: mg/hr; Site: left jugular; 05:30 Follow up: Response: No adverse reaction; RASS: Deep sedation (-4); IV Status: Infusion ha1 continued 07:05 Follow up: Current rate is 2mg/hr aa5 08:10 Follow up: IV Status: Infusion continued upon admission aa5 05:20 Drug: Acetaminophen MI Suppository 325 mg MI once Route: MI; ha1 06:16 Follow up: Response: No adverse reaction bm8 05:20 Drug: Acetaminophen MI Suppository 650 mg MI once Route: MI; ha1 06:16 Follow up: Response: No adverse reaction bm8 06:19 Drug: Potassium Chloride IV 20 mEq IV at calculated rate once; administer over 1-2 bm8 hours {Note: central.} Route: IV; Rate: calculated rate; Site: Other; 08:15 Follow up: Response: No adverse reaction; IV Status: Completed infusion aa5 06:57 Drug: Cefepime IVPB 2 grams IVPB at 200 ml/hr once over 30 mins; (mix in NS 100 mL) bm8 Route: IVPB; Rate: 200 ml/hr; Infused Over: 30 mins; Site: right antecubital; 07:27 Follow up: Response: No adverse reaction; IV Status: Completed infusion aa5 12:49 Not Given (Pt well sedated with Versed ): fentanyl (pf)25 mcg/kg/h IV at calculated aa5 rate See Administration Instructions; (Standard concentration 500 mcg / 50 mL NS [10 mcg / 1 mL); Recommended max rate 4 mcg/kg/hr; Titrate 0.25 mcg/kg/hr as often as every 3 minutes to achieve goal (see titration policy); Goal parameter RASS score 0 to -2 Medication: 01:42 VIS not applicable for this client. ha1 Intake: 04:05 IV: 250ml; Total: 250ml. ha1 04:06 IV: 1000ml; Total: 1250ml. ha1 04:06 IV: 100ml; Total: 1350ml. ha1 04:07 IV: 100ml; Total: 1450ml. ha1 04:07 IV: 1000ml; Total: 2450ml. ha1 04:07 IV: 1000ml; Total: 3450ml. ha1 04:08 IV: 1000ml; Total: 4450ml. ha1 06:17 IV: 100ml; Total: 4550ml. bm8 Ventilator: 05:05 Fi02: 100%; T.V.: 500ml; Peep: 5cm; ET tube: 8 fr (Oral); ha1 Outcome: 05:16 Decision to Hospitalize by Provider. sp4 08:20 Admitted to ICU accompanied by nurse, accompanied by tech, via stretcher, room ICU 4, aa5 on monitor, with chart, 08:20 Condition: stable 08:30 Patient left the ED. aa5 Signatures: Dispatcher [employer] EDLisa Carlisle, RN JOSE CARLOS iw Myriam Castaneda RN RN aa5 Carolyn Zhao, RN RN Jess Null, RN RN ha1 Juliana Hurd rv1 Bryson Arnold MD MD sp4 José Rocha RN RN bm8 Magaly Jacobson, JOSE CARLOS RN kj2 Corrections: (The following items were deleted from the chart) 02:24 01:44 COMPREHENSIVE METABOLIC PANEL+C.LAB.BRZ drawn and sent. ha1 EDMS 04:12 02:19 No provider procedures requiring assistance completed. bm8 ha1 04:30 04:08 BP 88 / 62; Pulse 111bpm; Resp 16bpm; Pulse Ox 99% bipap; Temp 97.8F; Pain 0/10, ha1 Adult; ha1 12:44 08:50 Patient left the ED. aa5
[2024-01-10] MEDS ORDERED: ACETAMINOPHEN 650MG/RECT SUPP PR ONE (05:24)
[2024-01-10] MEDS ORDERED: ACETAMINOPHEN 325 MG/SUPP PR ONE (05:25)
[2024-01-10 05:46] LABS: Troponin High Sensitivity 83.4 pg/mL (<58.9)
[2024-01-10 05:47] LABS: Specific Gravity 1.011 (1.005-1.030); Sqamous Epithelial <5 /HPF (None Seen); Urine Bacteria <20 /HPF (<20); Urine Bilirubin NEGATIVE (Negative); Urine Blood 2+ (Negative); Urine Clarity Extremely Turbid (Clear); Urine Color Light-Yellow (Yellow); Urine Culture Reflex Order NOT NEEDED; Urine Glucose NEGATIVE (Negative); Urine Ketones NEGATIVE (Negative); Urine Microscopic Reflex YN ORDER UMIC; Urine Mucus 2+ /HPF (None Seen); Urine Nitrite NEGATIVE (Negative); Urine Protein 1+ (Negative); Urine Urobilinogen Normal (Normal); Urine pH 5.5 (5.0-7.0)
[2024-01-10 05:51] LABS: Barbiturates NEGATIVE (NEGATIVE); Benzodiazepines NEGATIVE (NEGATIVE); Cocaine NEGATIVE (NEGATIVE); METHAMPHETAM NEGATIVE (NEGATIVE); Methadone NEGATIVE (NEGATIVE); Opiates NEGATIVE (NEGATIVE); Phencyclidine NEGATIVE (NEGATIVE); THC Cannibis NEGATIVE (NEGATIVE)
--- NOTE | 2024-01-10 05:59 | P.HP ---
Certification for Inpatient Patient admitted to: Inpatient With expected LOS: >2 Midnights <ArandaShameka Silva - Last Filed: 01/10/24 09:50> Patient History Date of Service: 01/10/24 Reason for admission: Septic shock History of Present Illness: Mr. Olsen is a 53-year-old gentleman with a past medical history of recently diagnosed hypertension. He started losartan and has been keeping a log of blood pressures that have been declining steadily. From emergency staff report, the patient family states the patient had been having syncope and a sore throat and malaise. Not much history can be obtained as the patient is intubated, his spouse had left the department to care for their children, and not a lot of history was given to the emergency department on patient's arrival per EMS. His condition rapidly declined in the emergency department and he was subsequently intubated, a central line placed, pressors started, and resuscitation of shock begun. Imaging results became available around 0630. The patient is critically ill and will be admitted to the ICU with bilateral pneumonia and severe septic shock. Initial vital signs on 2 pressors and intubated on admission are 109/54, 130, 32 , 99, 94%. Ventilator settings to be obtained Labs: WBC 35.6 with neutrophils of 98%, H/H 10.9/32.7 with 214 platelet CMP: Sodium 128 potassium 3.2, chloride 94, bicarb 21, BUN 61, creatinine 3.89, GFR 18, glucose 142, lactic acid 4.5, calcium 8.4, alk phos 211, C-reactive 187, albumin 2.1, TSH 6.150 Imaging: Patient had a CT head, chest x-ray, CT soft tissue neck chest abdomen and pelvis. Reports unavailable. Verbal report with extensive bilateral pneumonia, enlarged tonsils without abscess Home medications list reviewed: Yes (Losartan) - Past Medical/Surgical History Has patient received pneumonia vaccine in the past: No -: Hypertension -: Chronic back pain Psychosocial/ Personal History: Lives at home with his - Family History Family History: Reviewed- Non-Contributory - Social History Place of Residence: Home <Shameka Aranda - Last Filed: 01/10/24 09:50> Date of Service: 01/10/24 <Dipti Koch - Last Filed: 01/10/24 18:38> Allergies Penicillins Allergy (Verified 01/10/24 11:10) Itching/Hives/Rash Sulfa (Sulfonamide Antibiotics) Allergy (Verified 01/10/24 11:10) Itching/Hives/Rash Home Medications: Gabapentin [Neurontin] 600 mg PO BID 01/10/24 Losartan Potassium 25 mg PO DAILY 01/10/24 predniSONE [Prednisone] 40 mg PO DAILY 01/10/24 Review of Systems 10-point ROS is otherwise unremarkable General: As per HPI <Shameka Aranda - Last Filed: 01/10/24 09:50> Physical Examination - Physical Exam General: Unresponsive (Intubated) HEENT: Normocephalic, Other (Lack over bridge of nose status post syncope) Neck: Supple Respiratory: Other (Intubated respiratory rate greater Vent settings) Cardiovascular: Regular rate/rhythm, Other (Very tachypneic in the 130s) Capillary refill: <2 Seconds Gastrointestinal: Normal bowel sounds (NG tube with scant output) Musculoskeletal: No clubbing Integumentary: No rashes Neurological: Other (Intubated) Lymphatics: No axilla or inguinal lymphadenopathy Urinary: Templeton catheter (Acute renal failure but clear yellow urine) External genitalia: Deferred Rectal: Deferred - Studies Laboratory Data (last 24 hrs) 01/10/24 01/10/24 01/10/24 02:00 02:00 02:00 WBC 35.60 H Hgb 10.9 L Hct 32.7 L Plt Count 214 PT 11.7 INR 1.05 APTT 28.2 Sodium 128 L Potassium 3.2 L BUN 61 H Creatinine 3.89 H Glucose 142 H Total Bilirubin 0.9 AST 25 ALT 59 Alkaline Phosphatase 211 H 01/10/24 01:26 WBC Hgb Hct Plt Count PT INR APTT Sodium Cancelled Potassium Cancelled BUN Cancelled Creatinine Cancelled Glucose Cancelled Total Bilirubin Cancelled AST Cancelled ALT Cancelled Alkaline Phosphatase Cancelled <Shameka Aranda - Last Filed: 01/10/24 09:50> - Studies Laboratory Data (last 24 hrs) 01/10/24 01/10/24 01/10/24 02:00 02:00 02:00 WBC 35.60 H Hgb 10.9 L Hct 32.7 L Plt Count 214 PT 11.7 INR 1.05 APTT 28.2 Sodium 128 L Potassium 3.2 L BUN 61 H Creatinine 3.89 H Glucose 142 H Total Bilirubin 0.9 AST 25 ALT 59 Alkaline Phosphatase 211 H 01/10/24 01:26 WBC Hgb Hct Plt Count PT INR APTT Sodium Cancelled Potassium Cancelled BUN Cancelled Creatinine Cancelled Glucose Cancelled Total Bilirubin Cancelled AST Cancelled ALT Cancelled Alkaline Phosphatase Cancelled <Dipti Koch Bernardino - Last Filed: 01/10/24 18:38> Assessment and Plan - Plan Pneumonia with severe sepsis with shock with improving lactic acidosis Acute renal failure Elevated troponin Electrolyte derangement Admit to ICU Pancultures and then Merrem 1gm IVPB every 12h Maintain vent with current settings repeat ABG at [address] Sloan Continue Levophed and dopamine via IJ Change IVF to D5 half normal saline Continue to evaluate and replete electrolytes [address] Barrios Begin heparin drip at 18 units/kg per hour Consult Dr. Pabon - Advance Directives Does patient have a Living Will: No Does patient have a Durable POA for Healthcare: No - Code Status/Comfort Care Code Status Assessed: Yes Code Status: Full Code Time Spent Managing Pts Care (In Minutes): 45 (critical care) <Shameka Aranda - Last Filed: 01/10/24 09:50> - Plan Pt seen and examined. I agree with the note by the [employer]. Pt is a 53yo male with past medical history of hypertension who presents with Shortness of breath. On admission, his family reported that pt had syncope, sore throat and malaise at home. The reports that pt was getting oral antibiotics at home for tonsilit is. Pt felt the tonsular abscess bursted in his mouth and he swallowed some of it. After that incident pt became more lethargic and they came to the Er for evaluation. His medical condition progressively worsened while in the ER and he was intubated to protect his airway. Lab study shows Na 128. K 3.2, BUN 61, WBC 35.6, Hgb 10.9, Lactate 4.5, CRP 187, albumin 2.1, and TSH 6.150. CT chest shows extensive bilateral pneumonia, enlarged tonsils without abscess. At bedside, pt is in NAD. A/P: Septic shock 2/2 bilateral pneumonia: Will continue IVF, iv vanc and merrem. Will f/u blood. Acute resp failure: Due to bilateral pneumonia. Will continue iv abx and pressors. Consulted Pulm. NSTEMI: troponin is 83 -> 658. Will continue heparin drip and consult cardiology. Hypokalemia; k is 3.2. Will replete and monitor Htn: Continue home med DVT ppx: SCD Code: full. <Dipti Koch - Last Filed: 01/10/24 18:38>
[2024-01-10] MEDS ORDERED: KCL 20 MEQ/100 mL IVPB 100 ML IV ONE (06:08)
[2024-01-10 06:25] LABS: Arterial Blood Carboxyhemoglob 0.7 % (0-1.5); Blood Gas Oxyhemoglobin 91.1 % (94-97); Blood O2 Saturation 93.6 % (92-98.5)
[2024-01-10 06:26] LABS: Blood Gas THB 10.9 g/dl (12-18)
[2024-01-10] MEDS ORDERED: CEFEPIME 2 GM VIAL ONE (06:52)
[2024-01-10] MEDS ORDERED: DOPAMINE/D5W 400 MG/250 ML BAG IV SCH (07:15)
[2024-01-10] MEDS ORDERED: NOREPINEPHRINE BITARTRATE/D5W 4 MG/250 ML KIT IV SCH (09:00)
[2024-01-10] MEDS: D5 0.45 NS 1,000 ML IV SCH (09:48)
[2024-01-10] MEDS: Meropenem 1,000 MG in NA CHLORIDE 0.9% 100 ML IV SCH (09:49)
[2024-01-10] MEDS: ASPIRIN EC 81 MG TAB PO SCH (09:51)
[2024-01-10] MEDS: HEPARIN/D5W 25,000 UNIT/500 ML BAG IV SCH (09:53)
[2024-01-10 09:55] LABS: Absolute Basophils 0.2 K/uL (0-0.5); Absolute Lymphocytes (CBC) 0.5 K/uL (0.7-4.9); Absolute Monocytes 0.9 K/uL (0.1-1.3); Absolute Neutrophil 50.5 K/uL (1.8-8.0); Basophils % 0.3 % (0-1.3); Hematocrit 30.9 % (39.6-49.0); Hemoglobin 10.4 g/dL (13.6-17.9); Lymphocytes % 0.9 % (15.3-44.8); MCH 30.8 pg (27.0-35.0); MCHC 33.5 g/dL (32.0-36.0); MCV 91.8 fL (80-100); MPV 8.6 fL (7.6-11.3); Monocytes % 1.7 % (3.3-12.3); Neutrophils % 97.1 % (41.7-73.7); Nucleated Red Blood Cells % 0.1 % (0-0); Platelets 240 thou/uL (152-406); RBC Red Blood Cell Count 3.36 M/uL (4.33-5.43)
[2024-01-10 09:56] LABS: PT Prothrombin Time 11.7 SECONDS (9.4-12.5); Protime INR 1.05
[2024-01-10 10:07] LABS: Magnesium 2.3 mg/dL (1.6-2.4); Potassium 4.3 mEq/L (3.5-5.1)
[2024-01-10 10:10] LABS: Troponin High Sensitivity 658.1 pg/mL (<58.9)
[2024-01-10] MEDS: ALBUTEROL 2.5 MG/3 ML NEB SOL NEB SCH (11:00)
[2024-01-10] MEDS: IPRATROPIUM BROM 0.5MG/2.5ML NEB SCH (11:00)
--- NOTE | 2024-01-10 11:07 | P.CNS ---
Date of Consult: 01/10/24 Chief Complaint: Septic shock History of Present Illness: Patient with PMH of HTN, presented with malaise, SOB, admitted with PNA and sepsis, intubated now, cardiology were consulted for elevated troponin. Allergies Penicillins Allergy (Unverified 01/10/24 07:20) Itching/Hives/Rash Sulfa (Sulfonamide Antibiotics) Allergy (Unverified 01/10/24 07:20) Itching/Hives/Rash Home medications list reviewed: Yes - Past Medical/Surgical History -: Hypertension -: Chronic back pain Psychosocial/ Personal History: Lives at home with his - Social History Smoking Status: Unknown if ever smoked Place of Residence: Home Review of Systems is unable to be obtained Physical Examination Temp Pulse Resp BP Pulse Ox 99 F 117 H 18 111/87 97 01/10/24 10:11 01/10/24 10:11 01/10/24 10:11 01/10/24 10:11 01/10/24 08:45 General: In no apparent distress, Other (intubated, sedated.) HEENT: Atraumatic, PERRLA, Mucous membr. moist/pink, EOMI, Sclerae nonicteric Neck: Supple, 2+ carotid pulse no bruit, No LAD, Without JVD or thyroid abnormality Respiratory: Clear to auscultation bilaterally, Normal air movement Cardiovascular: Regular rate/rhythm, Normal S1 S2 Gastrointestinal: Normal bowel sounds, No tenderness Musculoskeletal: No tenderness Integumentary: No rashes Neurological: Normal gait, Normal speech, Normal tone, Normal affect Lymphatics: No axilla or inguinal lymphadenopathy Laboratory Data (last 24 hrs) 01/10/24 01/10/24 01/10/24 02:00 02:00 02:00 WBC 35.60 H Hgb 10.9 L Hct 32.7 L Plt Count 214 PT 11.7 INR 1.05 APTT 28.2 Sodium 128 L Potassium 3.2 L BUN 61 H Creatinine 3.89 H Glucose 142 H Total Bilirubin 0.9 AST 25 ALT 59 Alkaline Phosphatase 211 H 01/10/24 01:26 WBC Hgb Hct Plt Count PT INR APTT Sodium Cancelled Potassium Cancelled BUN Cancelled Creatinine Cancelled Glucose Cancelled Total Bilirubin Cancelled AST Cancelled ALT Cancelled Alkaline Phosphatase Cancelled - Problems (1) NSTEMI (non-ST elevated myocardial infarction) Current Visit: Yes Status: Acute Plan: Patient enzymes are trending up, EKG no significant ST changes, no arrhythmia, most likely type 2 CT from septic shock, ABDIRIZAK. Heparin ACS protocol ASA 81 mg daily Lipitor 40 mg daily Get Echo (2) Sepsis Current Visit: Yes Status: Acute Plan: continue vasopressors support, hydration and Abx.
--- NOTE | 2024-01-10 11:48 | P.CNS ---
Date of Consult: 01/10/24 Reason for Consult: ABDIRIZAK Requesting Physician: Dipti Koch Chief Complaint: Septic shock History of Present Illness: Mr. Olsen is a 53-year-old gentleman with a past medical history of recently diagnosed hypertension. He started losartan and has been keeping a log of blood pressures that have been declining steadily. From emergency staff report, the patient family states the patient had been having syncope and a sore throat and malaise. Not much history can be obtained as the patient is intubated, his spouse had left the department to care for their children, and not a lot of history was given to the emergency department on patient's arrival per EMS. His condition rapidly declined in the emergency department and he was subsequently intubated, a central line placed, pressors started, and resuscitation of shock begun. Imaging results became available around 629. The patient is critically ill and will be admitted to the ICU with bilateral pneumonia and severe septic shock. Initial vital signs on 2 pressors and intubated on admission are 109/54, 130, 32, 99, 94%. Ventilator settings to be obtained [id number] 04:19 This 53 yrs old Male presents to ER via EMS with complaints of Near Syncope. Allergies Penicillins Allergy (Verified 01/10/24 11:10) Itching/Hives/Rash Sulfa (Sulfonamide Antibiotics) Allergy (Verified 01/10/24 11:10) Itching/Hives/Rash Home medications list reviewed: Yes Home Medications: Gabapentin [Neurontin] 600 mg PO BID 01/10/24 Losartan Potassium 25 mg PO DAILY 01/10/24 predniSONE [Prednisone] 40 mg PO DAILY 01/10/24 - Past Medical/Surgical History Diabetic: No -: Hypertension -: Chronic back pain Psychosocial/ Personal History: Lives at home with his - Social History Smoking Status: Unknown if ever smoked Place of Residence: Home Review of Systems is unable to be obtained Physical Examination Temp Pulse Resp BP Pulse Ox 99 F 117 H 18 111/87 97 01/10/24 10:11 01/10/24 10:11 01/10/24 10:11 01/10/24 10:11 01/10/24 08:45 General: Unresponsive HEENT: Atraumatic Neck: Supple Respiratory: Clear to auscultation bilaterally, Normal air movement Cardiovascular: No edema, Regular rate/rhythm Gastrointestinal: Soft and benign, Non-distended Musculoskeletal: No clubbing, No contractures Integumentary: No rashes, No cyanosis Neurological: Normal speech Laboratory Data (last 24 hrs) 01/10/24 01/10/24 01/10/24 02:00 02:00 02:00 WBC 35.60 H Hgb 10.9 L Hct 32.7 L Plt Count 214 PT 11.7 INR 1.05 APTT 28.2 Sodium 128 L Potassium 3.2 L BUN 61 H Creatinine 3.89 H Glucose 142 H Total Bilirubin 0.9 AST 25 ALT 59 Alkaline Phosphatase 211 H 01/10/24 01:26 WBC Hgb Hct Plt Count PT INR APTT Sodium Cancelled Potassium Cancelled BUN Cancelled Creatinine Cancelled Glucose Cancelled Total Bilirubin Cancelled AST Cancelled ALT Cancelled Alkaline Phosphatase Cancelled Imagings Data: [id number] EXAM DESCRIPTION: RAD - Chest Single View - 01/10/2024 5:25 am CLINICAL HISTORY: Post ETT. COMPARISON: XR Chest 01/10/2024 4:39:11 AM. TECHNIQUE: XR CHEST 1 VIEW 01/10/2024 5:10 AM CDT FINDINGS: The heart is mildly enlarged. There are mild interstitial changes within both lungs. There is no pleural effusion. There is no pneumothorax. There are no acute osseous findings. Endotracheal tube tip is in the mid trachea. NG tube tip is in the stomach. Left central line is unchanged. IMPRESSION: Relatively little change following intubation. [id number] EXAM DESCRIPTION: CT - Chest Abd Pelvis Wo Con - 01/10/2024 7:10 am CLINICAL HISTORY: Sepsis, r/o pneumonia. COMPARISON: XR Chest 01/10/2024. TECHNIQUE: CT CHEST ABDOMEN PELVIS WITHOUT IV CONTRAST on 01/10/2024 3:37 AM CDT This exam was performed according to our departmental dose-optimization program, which includes automated exposure control, adjustment of the mA and/or kV according to patient size and/or use of iterative reconstruction technique. FINDINGS: Chest: The heart is enlarged. There is no pericardial effusion. Intra thoracic lymph nodes are not enlarged. Endotracheal tube tip is in the mid to lower trachea. NG tube tip is in the stomach. Left central line tip is in the upper SVC. There is no pleural effusion, pleural thickening or pneumothorax. Central airways are patent. There is extensive dependent bilateral airspace disease. Abdomen: The liver is normal in appearance. There is no biliary dilatation. Gall bladder is normal in appearance. The pancreas and spleen are normal in appearance. The adrenal glands and kidneys are unremarkable. Abdominal aorta is normal in course and caliber without aneurysm. There is no free air. There is no retroperitoneal adenopathy. Pelvis: There is moderate diverticulosis of the distal colon. Urinary bladder contains a Templeton catheter. There is no free fluid. Appendix is normal. There are bilateral inguinal hernia repairs. Skeleton: There are no acute osseous findings. No suspicious bony lesions. IMPRESSION: Extensive bilateral pneumonia. No definite acute inflammatory process in the abdomen or pelvis. [id number] EXAM DESCRIPTION: CT - Soft Tissue Neck Wo Contr - 01/10/2024 7:[address] neck without intravenous contrast CLINICAL HISTORY: 53 years Male tonsillitis. TECHNIQUE: Axial CT imaging of the soft tissues of the neck were performed without intravenous contrast followed by sagittal and coronal reconstructed images. The CT study is performed according to ALARA (as low as reasonably achievable) or ALARA/IMAGE GENTLY, with automatic adjustment of mA and/or kV according to patient size. Performed on: 01/10/2024 at 3:54 AM COMPARISON: No prior studies were available for comparison.. FINDINGS: Limitations: Overall evaluation is limited without intravenous contrast. The visualized portions of the brain and orbits are normal. There is fullness of the nasopharyngeal soft tissues likely related to intubation. The visualized portions of the oral cavity are grossly unremarkable. Orotracheal and orogastric tubes are present. The oropharynx is grossly unremarkable. The parapharyngeal fat planes are preserved. There is a partially imaged left IJ central venous catheter. The hypopharynx is unremarkable. The epiglottis and aryepiglottic folds are normal. The vallecula and pyriform sinuses are grossly normal. The preepiglottic fat is preserved. The thyroid, cricoid and arytenoid cartilages are normal. The region of the false and true vocal cords is normal as is the anterior commissure. The parotid and submandibular glands are grossly within normal limits. No intrinsic mass lesions are seen. . There is infiltration of the fat surrounding the right carotid sheath and extending along the right side of the neck. There are right-sided level II cervical lymph nodes which are likely reactive inflammatory in nature. There is air in the soft tissues at the level of the thoracic inlet bilaterally which is likely intravascular in nature likely related to air in an IV line. There is trace mucosal thickening of the ethmoid sinuses. The remainder of the paranasal sinuses and mastoid air cells and middle ear cavities are clear. The thyroid gland is normal in size and configuration. The thoracic inlet is normal. There are atelectatic changes in the dependent upper lobes. No acute osseous abnormalities are identified. IMPRESSION: 1. Overall evaluation is limited without intravenous contrast. 2. There is infiltration of the fat surrounding the right carotid sheath and extending along the right side of the neck. There are right-sided level II cervical lymph nodes which are likely reactive inflammatory in nature. Patency of the jugular vein cannot be determined on this examination. 3. There is air in the soft tissues at the level of the thoracic inlet bilaterally which is likely intravascular in nature likely related to air in an IV line. 4. There is fullness of the nasopharyngeal soft tissues likely related to intubation. 5. There are atelectatic changes in the dependent upper lobes. 6. No definite CT evidence to suggest tonsillitis on this examination. Conclusions/Impression: Stage II or III ABDIRIZAK in the setting of sepsis/ hypotension Proteinuria -No NSAIDs -Continue IVF and pressure support Hyponatremia -Change IVF to NS Hypokalemia -Replete as ordered Hyperglycemia -RISS prn Moderate Hypoalbuminemia -Consider tube feeds if he remains unresponsive Anemia in chronic illness -Monitor H&H Sepsis/ Septic Shock/ BL PNA Leukocytosis -Continue Abx -Continue vasopressor support -NS bolus X1 -Continue IVF Acute Respiratory Failure BL PNA -Continue ventilatory support -Continue Abx Hospitalist and ER notes reviewed Case discussed with the hospitalist team >30min patient care Thank you kindly for the consultation Critical Care: Yes
[2024-01-10] MEDS ORDERED: IPRATROPIUM BROM 0.5MG/2.5ML NEB PRN (12:02)
--- NOTE | 2024-01-10 12:03 | P.CNS ---
Date of Consult: 01/10/24 Reason for Consult: Respiratory failure Chief Complaint: Septic shock History of Present Illness: Patient is 53 years of age with a history of hypertension recently started on losartan admitted with syncope sore throat malaise he was intubated in the ER currently on a propofol drip hemodynamically stable Allergies Penicillins Allergy (Verified 01/10/24 11:10) Itching/Hives/Rash Sulfa (Sulfonamide Antibiotics) Allergy (Verified 01/10/24 11:10) Itching/Hives/Rash Home Medications: Gabapentin [Neurontin] 600 mg PO BID 01/10/24 Losartan Potassium 25 mg PO DAILY 01/10/24 predniSONE [Prednisone] 40 mg PO DAILY 01/10/24 - Past Medical/Surgical History Diabetic: No -: Hypertension -: Chronic back pain Psychosocial/ Personal History: Lives at home with his - Social History Smoking Status: Unknown if ever smoked Place of Residence: Home Review of Systems is unable to be obtained Physical Examination Temp Pulse Resp BP Pulse Ox 99 F 117 H 18 111/87 97 01/10/24 10:11 01/10/24 10:11 01/10/24 10:11 01/10/24 10:11 01/10/24 08:45 General: Unresponsive Respiratory: Clear to auscultation bilaterally Cardiovascular: No edema, Regular rate/rhythm, Normal S1 S2 Laboratory Data (last 24 hrs) 01/10/24 01/10/24 01/10/24 02:00 02:00 02:00 WBC 35.60 H Hgb 10.9 L Hct 32.7 L Plt Count 214 PT 11.7 INR 1.05 APTT 28.2 Sodium 128 L Potassium 3.2 L BUN 61 H Creatinine 3.89 H Glucose 142 H Total Bilirubin 0.9 AST 25 ALT 59 Alkaline Phosphatase 211 H 01/10/24 01:26 WBC Hgb Hct Plt Count PT INR APTT Sodium Cancelled Potassium Cancelled BUN Cancelled Creatinine Cancelled Glucose Cancelled Total Bilirubin Cancelled AST Cancelled ALT Cancelled Alkaline Phosphatase Cancelled - Problems (1) Respiratory failure Current Visit: Yes Status: Acute Plan: Patient is 53 years of age admitted with respiratory failure currently on a ventilator chest x-ray clear patient's white count significantly elevated appears to be in acute renal failure lactic acid troponins all elevated patient is borderline tachycardic borderline fever doubt UTI continue with IV fluids Vent settings reviewed echocardiogram ordered continue with meropenem 1 dose of vancomycin was given changed to Levophed DC dopamine start patient on hydrocortisone bolus 1 L of normal saline blood gases reviewed hypoxic on admission Qualifiers: Chronicity: acute
[2024-01-10 12:13] VITALS: BMI 30.4
[2024-01-10] MEDS: D5 0.9 NS 1,000 ML IV SCH (12:44)
[2024-01-10] MEDS: NA CHLORIDE 0.9% 500 ML IV ONE (12:44)
[2024-01-10 13:00] LABS: Phosphorus 5.6 mg/dL (2.5-4.9); Uric Acid 10.8 mg/dL (3.5-7.2)
[2024-01-10 13:57] LABS: Blood O2 Saturation 99.2 % (92-98.5)
[2024-01-10 13:58] LABS: Arterial Blood Carboxyhemoglob 0.4 % (0-1.5); Blood Gas Oxyhemoglobin 97.5 % (94-97); Blood Gas THB 10.8 g/dl (12-18)
[2024-01-10] MEDS: NA CHLORIDE 0.9% 250 ML ONE (14:20)
[2024-01-10] MEDS: NOREPINEPHRINE 4 MG in D5W 250 ML IV SCH (14:40)
--- NOTE | 2024-01-10 14:45 | RAD REPORT ---
EXAM DESCRIPTION: RAD - Chest Single View - 01/10/2024 5:25 am CLINICAL HISTORY: Post ETT. COMPARISON: XR Chest 01/10/2024 4:39:11 AM. TECHNIQUE: XR CHEST 1 VIEW 01/10/2024 5:10 AM CDT FINDINGS: The heart is mildly enlarged. There are mild interstitial changes within both lungs. There is no pleural effusion. There is no pneumothorax. There are no acute osseous findings. Endotracheal tube tip is in the mid trachea. NG tube tip is in the stomach. Left central line is unchanged. IMPRESSION: Relatively little change following intubation. Electronically signed by: Refugio Jeff MD 01/10/2024 05:48 AM CDT RP Due to temporary technical issues with the PACS/Fluency reporting system, reports are being signed by the in house radiologists without review as a courtesy to insure prompt reporting. The interpreting radiologist is fully responsible for the content of the report.
--- NOTE | 2024-01-10 14:52 | RAD REPORT ---
EXAM DESCRIPTION: CT - Soft Tissue Neck Wo Contr - 01/10/2024 7:[address] neck without intravenous contrast CLINICAL HISTORY: 53 years Male tonsillitis. TECHNIQUE: Axial CT imaging of the soft tissues of the neck were performed without intravenous contr ast followed by sagittal and coronal reconstructed images. The CT study is performed according to ALA RA (as low as reasonably achievable) or ALARA/IMAGE GENTLY, with automatic adjustment of mA and/or kV according to patient size. Performed on: 01/10/2024 at 3:54 AM COMPARISON: No prior studies were available for comparison.. FINDINGS: Limitations: Overall evaluation is limited without intravenous contrast. The visualized portions of the brain and orbits are normal. There is fullness of the nasopharyngeal soft tissues likely related to intubation. The visualized por tions of the oral cavity are grossly unremarkable. Orotracheal and orogastric tubes are present. The oropharynx is grossly unremarkable. The parapharyngeal fat planes are preserved. There is a partial ly imaged left IJ central venous catheter. The hypopharynx is unremarkable. The epiglottis and aryepiglottic folds are normal. The vallecula and pyriform sinuses are grossly nor mal. The preepiglottic fat is preserved. The thyroid, cricoid and arytenoid cartilages are normal. The region of the false and true vocal cords is normal as is the anterior commissure. The parotid and submandibular glands are grossly within normal limits. No intrinsic mass lesions are seen. . There is infiltration of the fat surrounding the right carotid sheath and extending along the right s shannan of the neck. There are right-sided level II cervical lymph nodes which are likely reactive inflam matory in nature. There is air in the soft tissues at the level of the thoracic inlet bilaterally whi ch is likely intravascular in nature likely related to air in an IV line. There is trace mucosal thickening of the ethmoid sinuses. The remainder of the paranasal sinuses and mastoid air cells and middle ear cavities are clear. The thyroid gland is normal in size and configuration. The thoracic inlet is normal. There are atelectatic changes in the dependent upper lobes. No acute osseous abnormalities are identified. IMPRESSION: 1. Overall evaluation is limited without intravenous contrast. 2. There is infiltration of the fat surrounding the right carotid sheath and extending along the ri ght side of the neck. There are right-sided level II cervical lymph nodes which are likely reactive i nflammatory in nature. Patency of the jugular vein cannot be determined on this examination. 3. There is air in the soft tissues at the level of the thoracic inlet bilaterally which is likely intravascular in nature likely related to air in an IV line. 4. There is fullness of the nasopharyngeal soft tissues likely related to intubation. 5. There are atelectatic changes in the dependent upper lobes. 6. No definite CT evidence to suggest tonsillitis on this examination. Electronically signed by: Delmy Perez DO 01/10/2024 07:03 AM CDT Due to temporary technical issues with the PACS/Fluency reporting system, reports are being signed by the in house radiologists without review as a courtesy to insure prompt reporting. The interpreting radiologist is fully responsible for the content of the report.
--- NOTE | 2024-01-10 14:55 | RAD REPORT ---
EXAM DESCRIPTION: CT - Chest Abd Pelvis Wo Con - 01/10/2024 7:10 am CLINICAL HISTORY: Sepsis, r/o pneumonia. COMPARISON: XR Chest 01/10/2024. TECHNIQUE: CT CHEST ABDOMEN PELVIS WITHOUT IV CONTRAST on 01/10/2024 3:37 AM CDT This exam was performed according to our departmental dose-optimization program, which includes autom ated exposure control, adjustment of the mA and/or kV according to patient size and/or use of iterati ve reconstruction technique. FINDINGS: Chest: The heart is enlarged. There is no pericardial effusion. Intrathoracic lymph nodes are not enlarged. Endotracheal tube tip is in the mid to lower trachea. NG tube tip is in the stomach . Left central line tip is in the upper SVC. There is no pleural effusion, pleural thickening or pneumothorax. Central airways are patent. There i s extensive dependent bilateral airspace disease. Abdomen: The liver is normal in appearance. There is no biliary dilatation. Gallbladder is normal in appearance. The pancreas and spleen are normal in appearance. The adrenal glands and kidneys are unre markable. Abdominal aorta is normal in course and caliber without aneurysm. There is no free air. There is no r etroperitoneal adenopathy. Pelvis: There is moderate diverticulosis of the distal colon. Urinary bladder contains a Templeton cathet er. There is no free fluid. Appendix is normal. There are bilateral inguinal hernia repairs. Skeleton: There are no acute osseous findings. No suspicious bony lesions. IMPRESSION: Extensive bilateral pneumonia. No definite acute inflammatory process in the abdomen or pelvis. Electronically signed by: Refugio Jeff MD 01/10/2024 06:52 AM CDT Due to temporary technical issues with the PACS/Fluency reporting system, reports are being signed by the in house radiologists without review as a courtesy to insure prompt reporting. The interpreting radiologist is fully responsible for the content of the report.
--- NOTE | 2024-01-10 14:59 | RAD REPORT ---
EXAM DESCRIPTION: CT - Head Brain Wo Cont - 01/10/2024 7:12 am CLINICAL HISTORY: AMS. COMPARISON: None. TECHNIQUE: CT HEAD WITHOUT IV CONTRAST on 01/10/2024 1:26 AM CDT This exam was performed according to our departmental dose-optimization program, which includes autom ated exposure control, adjustment of the mA and/or kV according to patient size and/or use of iterati ve reconstruction technique. FINDINGS: There is no acute hemorrhage, mass effect or midline shift. Chen-white differentiation is preserved. There is no hydrocephalus. There is no significant volume loss for age. The calvarium is intact. Orbits and globes are unremarkable. The paranasal sinuses are clear. Mastoid air cells are clear. IMPRESSION: No acute intracranial findings. Electronically signed by: Refugio Jeff MD 01/10/2024 06:42 AM CDT Due to temporary technical issues with the PACS/Fluency reporting system, reports are being signed by the in house radiologists without review as a courtesy to insure prompt reporting. The interpreting radiologist is fully responsible for the content of the report.
--- NOTE | 2024-01-10 15:01 | RAD REPORT ---
EXAM DESCRIPTION: RAD - Chest Single View - 01/10/2024 4:43 am CLINICAL HISTORY: Left central venous line placement. COMPARISON: XR Chest 01/10/2024, 1:59 AM. FINDINGS: SUPPORT DEVICES: Left IJ central venous catheter terminates over SVC. LUNGS/PLEURAL SPACES: Prominent interstitial lung markings have mildly improved secondary to better i nflation. No pleural effusion. No pneumothorax. HEART/MEDIASTINUM: Within normal range. BONES/UPPER ABDOMEN/SOFT TISSUES: No acute findings. IMPRESSION: Prominent interstitial lung markings have mildly improved secondary to better inflation Electronically signed by: Yashira Lindsay MD 01/10/2024 04:55 AM CDT RP Due to temporary technical issues with the PACS/Fluency reporting system, reports are being signed by the in house radiologists without review as a courtesy to insure prompt reporting. The interpreting radiologist is fully responsible for the content of the report.
--- NOTE | 2024-01-10 15:04 | RAD REPORT ---
EXAM DESCRIPTION: RAD - Chest Single View - 01/10/2024 2:03 am CLINICAL HISTORY: Chest pain COMPARISON: None FINDINGS: LUNGS/PLEURAL SPACES: Prominence of interstitial opacities in both lungs may represent vas cular congestion, subsegmental atelectasis or interstitial edema. No focal airspace consolidation. No pleural effusion. No pneumothorax. HEART/MEDIASTINUM: Within normal range. BONES/UPPER ABDOMEN/SOFT TISSUES: No acute findings. IMPRESSION: Prominence of interstitial opacities in both lungs may represent vascular congestion, fields bsegmental atelectasis or interstitial edema. No focal airspace consolidation. Electronically signed by: Yashira Lindsay MD 01/10/2024 02:43 AM CDT RP Due to temporary technical issues with the PACS/Fluency reporting system, reports are being signed by the in house radiologists without review as a courtesy to insure prompt reporting. The interpreting radiologist is fully responsible for the content of the report.
[2024-01-10] MEDS: HYDROCORTISONE SUC 100 MG INJ IV SCH (15:58)
[2024-01-10 16:04] LABS: Albumin 2.1 g/dL (3.4-5.0); Albumin/Globulin Ratio 0.6 (1.1-1.8); Anion Gap 11.7 mEq/L (5.0-15.0); Bilirubin Total 1.2 mg/dL (0.2-1.0); Globulin 3.7 g/dL (2.3-3.5); Potassium 3.7 mEq/L (3.5-5.1); Protein, Total 5.8 g/dL (6.4-8.2)
[2024-01-10 16:06] LABS: Troponin High Sensitivity 1201.5 pg/mL (<58.9)
[2024-01-10] MEDS ORDERED: NOREPINEPHRINE IV SCH (18:00)
[2024-01-10] MEDS ORDERED: D5W IV SCH (18:00)
--- NOTE | 2024-01-10 18:25 | P.PN ---
Date of Service: 01/10/24 History per : Patient started losartan 25 mg p.o. daily 12/27/2023. Blood pressure log shows response with improved blood pressure readings. 01/03/2024 Mr. Olsen began running fever to 101 off and on with significant malaise. On 01/07/2024 he began running fever 103-104. Fever continued and he was seen by his PCP, diagnosed with tonsillitis, and given azithromycin 500 mg p.o. daily and a cortisone injection, the following day clindamycin 300 mg p.o. 3 times daily was initiated. On 01/09/2024, Mrs. Olsen attempted to get him to come to the emergency department as he was very somnolent and continued to run fever, she feels a peritonsillar abscess ruptured as he had discharge from the area and was then able to open his mouth more normally. She was forcing fluids into him but later in the afternoon she assisted him to the bathroom where he had a syncopal episode and she called EMS. <Shameka Aranda - Last Filed: 01/10/24 18:16> Pt seen and examined. I agree with the note by the SORTER/ASSAY TECH. <Dipti Koch - Last Filed: 01/10/24 21:50>
[2024-01-10] MEDS: MIDAZOLAM HCL IN 0.9 % NACL/PF 100 MG/100 ML BAG IVPB SCH (18:46)
[2024-01-10] MEDS: FENTANYL CITR 100 MCG/2 ML IV PRN (20:52)
[2024-01-10] MEDS ORDERED: HYDROCORTISONE SUC 100 MG INJ IV SCH (21:00)
[2024-01-10 21:14] LABS: Hematocrit 31.1 % (39.6-49.0); Hemoglobin 10.5 g/dL (13.6-17.9)
[2024-01-10] MEDS: NOREPINEPHRINE IV SCH (21:27)
[2024-01-10] MEDS: NA CHLORIDE 0.9% IV SCH (21:27)
[2024-01-11 00:41] LABS: Absolute Lymphocytes (CBC) 0.5 K/uL (0.7-4.9); Absolute Monocytes 0.6 K/uL (0.1-1.3); Absolute Neutrophil 29.4 K/uL (1.8-8.0); Basophils % 0.1 % (0-1.3); Hematocrit 30.7 % (39.6-49.0); Hemoglobin 10.2 g/dL (13.6-17.9); Lymphocytes % 1.5 % (15.3-44.8); MCHC 33.4 g/dL (32.0-36.0); MCV 92.7 fL (80-100); MPV 8.6 fL (7.6-11.3); Monocytes % 1.9 % (3.3-12.3); Neutrophils % 96.5 % (41.7-73.7); Platelets 164 thou/uL (152-406); RBC Red Blood Cell Count 3.31 M/uL (4.33-5.43); Red Cell Distribution Width 14.5 % (12.1-15.2)
[2024-01-11 02:09] LABS: Albumin/Globulin Ratio 0.5 (1.1-1.8); Anion Gap 8.6 mEq/L (5.0-15.0); Bilirubin Total 0.8 mg/dL (0.2-1.0); Globulin 3.7 g/dL (2.3-3.5); Magnesium 2.4 mg/dL (1.6-2.4); Phosphorus 3.2 mg/dL (2.5-4.9); Potassium 3.6 mEq/L (3.5-5.1); Protein, Total 5.7 g/dL (6.4-8.2)
--- NOTE | 2024-01-11 07:11 | ECHO ---
HEIGHT: 5 ft 9 in WEIGHT: 206 lb 0 oz DATE OF STUDY: 01/10/[address]: Clay Sloan MD 2-DIMENSIONAL: YES M.MODE: YES DOPPLER: YES COLOR FLOW: YES TDS: PORTABLE: YES DEFINITY: BUBBLE STUDY: DIAGNOSIS: NON ST ELEVATION MYOCARDIAL INFARCTION CARDIAC HISTORY: CATHERIZATION: SURGERY: PROSTHETIC VALVE: PACEMAKER: MEASUREMENTS (cm) DIASTOLIC (NORMALS) SYSTOLIC (NORMALS) IVSd 1.1 (0.6-1.2) LA Diam 2.9 (1.9-4.0) LVEF 25-30% LVIDd 5.2 (3.5-5.7) LVIDs 4.3 (2.0-3.5) %FS 17% LVPWd 1.3 (0.6-1.2) Ao Diam 3.4 (2.0-3.7) 2 DIMENSIONAL ASSESSMENT: RIGHT ATRIUM: NORMAL LEFT ATRIUM: NORMAL RIGHT VENTRICLE: NORMAL LEFT VENTRICLE: NORMAL TRICUSPID VALVE: MILD TRICUSPID REGURGITATION MITRAL VALVE: NORMAL PULMONIC VALVE: NORMAL AORTIC VALVE: MILD AORTIC STENOSIS PERICARDIAL EFFUSION: NONE AORTIC ROOT: NORMAL LEFT VENTRICULAR WALL MOTION: SEVERE GLOBAL HYPOKINESIS DOPPLER/COLOR FLOW: DIASTOLIC DYSFUNCTION COMMENTS: 1. SEVERELY REDUCED LEFT VENTRICULAR SYSTOLIC FUNCTION, EJECTION FRACTION 25-30%, SEVERE GLOBAL HYPOKINESIS 2. DIASTOLIC DYSFUNCTION 3. ELEVATED FILLING PRESSURE (RIGHT ATRIAL PRESSURE GREATER THAN 20 mmHg) 4. MILD AORTIC VALVE STENOSIS (MEAN GRADIENT 18 mmHg) TECHNOLOGIST: ANNA FRITZ [facility]
[2024-01-11] MEDS: KCL 20 MEQ/100 mL IVPB 20 MEQ/100 ML BAG IV SCH (07:32)
[2024-01-11] MEDS: ALBUMIN HUMAN 25% 50 ML IV SCH (07:54)
--- NOTE | 2024-01-11 07:59 | P.PN ---
Subjective Date of Service: 01/11/24 Chief Complaint: Septic shock Subjective: Improving (lightly sedated, may tolerate extubation) <Karen Arandaleela Silva - Last Filed: 01/11/24 07:49> Date of Service: 01/13/24 <Dipti Koch Bernardino - Last Filed: 01/13/24 22:00> Review of Systems is unable to be obtained General: As per HPI <ArandaShameka Silva - Last Filed: 01/11/24 07:49> Physical Examination - Vital Signs Temperature: 98.6 F Blood Pressure: 102/71 Pulse: 86 Respirations: 18 Pulse Ox (%): 97 - Physical Exam General: Other (sedated/intubated) HEENT: Normocephalic, Other (neck appears edematous, will US today) Neck: Other (edema) Respiratory: Normal air movement Cardiovascular: Regular rate/rhythm, Normal S1 S2 Capillary refill: <2 Seconds Gastrointestinal: Normal bowel sounds Musculoskeletal: No clubbing Integumentary: No rashes Neurological: Other (intubated, sedation is light) Lymphatics: No axilla or inguinal lymphadenopathy Urinary: Templeton catheter External genitalia: Deferred Rectal: Deferred <ArandaKarenleela Silva - Last Filed: 01/11/24 07:49> Assessment And Plan - Plan Pneumonia with severe sepsis with shock with improving lactic acidosis Acute renal failure - creatinine improved 01/11/24 to 1.58 fom 3.89 Elevated troponin - beginning to trend down 01/11/24 Electrolyte derangement - significantly improved 01/11/24 Extreme leukocytosis (up to 52,000) - Extreme neutrophilia (98%) 49% bands Pathology slide analysis - +1 Metamyelocytes Admit to ICU Pancultures and then Merrem 1gm IVPB every 12h, add Vanco today BID Maintain vent with current settings repeat ABG at 1200 - may wean tomorrow if ok with pulmonology Dr. Sloan following Continue Levophed and dopamine via IJ - dopamine weaned off. Levophed at 0.03mcg/kg/hr on 01/11/24 Change IVF to D5 half normal saline - Changed to D5NS per Nephro and electrolytes normalizing on 01/11/24 Continue to evaluate and replete electrolytes 1 unit PRBCs - done H/H stable 10.2 today (01/11/24) Dr. Barrios following Begin heparin drip at 18 units/kg per hour - continue Dr. Pabon following, ECHO pending Supraclavicular edema US bilateral neck - Code Status/Comfort Care Code Status Assessed: Yes (full) Critical Care: Yes (30 min) Time Spent Managing PTS Care (In Minutes): 50 <Shameka Aranda - Last Filed: 01/11/24 07:49> - Plan Pt seen and examined. I agree with the note by the SAIL FINISHER HAND. Continue iv abx, monitor electrolytes and f/u cultures <Dipti Koch - Last Filed: 01/13/24 22:00>
--- NOTE | 2024-01-11 09:48 | RAD REPORT ---
EXAM DESCRIPTION: Anatoliy Single View01/11/2024 6:04 am CLINICAL HISTORY: Respiratory failure COMPARISON: January 10, 2024 FINDINGS: Endotracheal tube has its tip at the level of the aortic arch. An NG tube within the stoma ch Central venous line in the SVC Minimal bilateral interstitial lung opacities have partially resolved. Heart remains enlarged
[2024-01-11] MEDS: ALBUMIN HUMAN 25% 50 ML IV ONE (09:50)
[2024-01-11] MEDS ORDERED: HEPARIN/D5W 25,000 UNIT/500 ML BAG IV SCH (10:00)
[2024-01-11] MEDS: HEPARIN 5000 UNIT/ML 1 ML VIAL IV SCH (10:28)
--- NOTE | 2024-01-11 10:28 | RAD REPORT ---
EXAM DESCRIPTION: USCarotid Artery Bilateral01/11/2024 9:24 am CLINICAL HISTORY: Carotid disease COMPARISON: None FINDINGS: The velocity of the right internal carotid artery equals 74 centimeters/second cm/sec. The right ICA/CCA ratio normal The velocity of the left internal carotid artery equals 75 centimeters/second cm/sec. The left ICA/CC A ratio normal Significant plaque within the arteries not visualized. Echogenic material consistent with acute thrombus within the right internal jugular vein The vertebral arteries demonstrate antegrade flow IMPRESSION: No significant arterial abnormality displayed Acute thrombus right internal jugular vein NASCET criteria used. Mild 0-49% stenosis Moderate 50-69% stenosis Severe 70-99% stenosis
--- NOTE | 2024-01-11 10:37 | P.PN ---
Nephrology note (S) Remains in the ICU, intubated, sig rise in troponin levels, being switched from Levophed to Dopamine gtt, BP soft but MAP > 65, good UOP Vitals reviewed in the EMR General: Intubated HEENT: Some bruising over nasal bridge, ET/OT Respiratory: b/l vent BS, reduced at bases Cardiovascular: No sig LE edema, mildly tachy, regular mostly Gastrointestinal: Mild distention, NT, chappell present Musculoskeletal: no sig contractures Integumentary: No rashes Neurological: Obtunded, no tremors [id number] EXAM DESCRIPTION: RAD - Chest Single View - 01/10/2024 5:25 am CLINICAL HISTORY: Post ETT. COMPARISON: XR Chest 01/10/2024 4:39:11 AM. TECHNIQUE: XR CHEST 1 VIEW 01/10/2024 5:10 AM CDT FINDINGS: The heart is mildly enlarged. There are mild interstitial changes within both lungs. There is no pleural effusion. There is no pneumothorax. There are no acute osseous findings. Endotracheal tube tip is in the mid trachea. NG tube tip is in the stomach. Left central line is unchanged. IMPRESSION: Relatively little change following intubation. [id number] EXAM DESCRIPTION: CT - Chest Abd Pelvis Wo Con - 01/10/2024 7:10 am CLINICAL HISTORY: Sepsis, r/o pneumonia. COMPARISON: XR Chest 01/10/2024. TECHNIQUE: CT CHEST ABDOMEN PELVIS WITHOUT IV CONTRAST on 01/10/2024 3:37 AM CDT This exam was performed according to our departmental dose-optimization program, which includes automated exposure control, adjustment of the mA and/or kV according to patient size and/or use of iterative reconstruction technique. FINDINGS: Chest: The heart is enlarged. There is no pericardial effusion. Intrathoracic lymph nodes are not enlarged. Endotracheal tube tip is in the mid to lower trachea. NG tube tip is in the stomach. Left central line tip is in the upper SVC. There is no pleural effusion, pleural thickening or pneumothorax. Central airways are patent. There is extensive dependent bilateral airspace disease. Abdomen: The liver is normal in appearance. There is no biliary dilatation. Gallbladder is normal in appearance. The pancreas and spleen are normal in ap pearance. The adrenal glands and kidneys are unremarkable. Abdominal aorta is normal in course and caliber without aneurysm. There is no free air. There is no retroperitoneal adenopathy. Pelvis: There is moderate diverticulosis of the distal colon. Urinary bladder contains a Chappell catheter. There is no free fluid. Appendix is normal. There are bilateral inguinal hernia repairs. Skeleton: There are no acute osseous findings. No suspicious bony lesions. IMPRESSION: Extensive bilateral pneumonia. No definite acute inflammatory process in the abdomen or pelvis. Conclusions/Impression: Stage II ABDIRIZAK multifactorial in the setting of hypotension/shock/possible sepsis, other -Fortunately Cr level downward trending nicely, auto-diuresing, monitor metab profile closely, will back off on IVF hydration given cardiac/TTE findings and since MAP holding > 65 and LA was not elevated Hypotension 2nd to shock, mixed cardiogenic +/- distributive/septic in the setting of b/l PNA, unspecified organism Leukocytosis, marked -Management per IM/critical care, pressors being changed by them, cont ABx, dose for reduced CrCl NSTEMI. Acute systolic CHF, elevated filling pressures -Monitor fluid balance closely, plan for transfer for evaluation by Cardiology, risk for JOE with LHC should be lower as renal function cont to recover Issac Beltrán MD, LI[facility]
--- NOTE | 2024-01-11 10:47 | RAD REPORT ---
EXAM DESCRIPTION: US - Extremity Nonvascular Complete - 01/11/2024 9:24 am CLINICAL HISTORY: Right neck pain and swelling COMPARISON: None FINDINGS: Several right neck lymph nodes are present. Largest 2 x 1.1 x 1.8 centimeters. It is hypoechoic. IMPRESSION: Several right neck lymph nodes. These probably are reactive in nature. As neoplasm can h ave this appearance it is recommended that the patient have followup ultrasound in 6 weeks to assess stability/resolution
[2024-01-11] MEDS: propofoL 1,000 MG/100 ML VIAL IV SCH (11:14)
[2024-01-11] MEDS: DOPAMINE/D5W 400 MG/250 ML BAG IV SCH (11:36)
[2024-01-11] MEDS: VANCOMYCIN 2.25 GM in NA CHLORIDE 0.9% 500 ML IVPB ONE (11:36)
--- NOTE | 2024-01-11 12:21 | P.DS ---
Admission Date: 01/10/24 Discharge Date: 01/11/24 Reason for Admission: Septic shock Consultations: Dr. Pabon - Cardiology Dr. Barrios/Leigh Ann - Nephrology Dr. Sloan - Pulmonology Brief History of Present Illness: Mr. Olsen is a 53-year-old gentleman with a past medical history of recently diagnosed hypertension. He started losartan and has been keeping a log of blood pressures that have been declining steadily. From emergency staff report, the patient family states the patient had been having syncope and a sore throat and malaise. Not much history can be obtained as the patient is intubated, his spouse had left the department to care for their children, and not a lot of history was given to the emergency department on patient's arrival per EMS. His condition rapidly declined in the emergency department and he was subsequently intubated, a central line placed, pressors started, and resuscitation of shock begun. Imaging results became available around 0630. The patient is critically ill and will be admitted to the ICU with bilateral pneumonia and severe septic shock. Initial vital signs on 2 pressors and intubated on admission are 109/54, 130, 32, 99, 94%. Ventilator settings to be obtained Labs: WBC 35.6 with neutrophils of 98%, H/H 10.9/32.7 with 214 platelet CMP: Sodium 128 potassium 3.2, chloride 94, bicarb 21, BUN 61, creatinine 3.89, GFR 18, glucose 142, lactic acid 4.5, calcium 8.4, alk phos 211, C-reactive 187, albumin 2.1, TSH 6.150 Imaging: Patient had a CT head, chest x-ray, CT soft tissue neck chest abdomen and pelvis. Reports unavailable. Verbal report with extensive bilateral pneumonia, enlarged tonsils without abscess Hospital Course: Mr. Olsen remains intubated , FiO2 40% , rate of 18 , tidal volume 500, PEEP of 5. He was weaned off dopamine over last evening. He remained on Levophed 0.03 mcg/kg/hr overnight. Blood pressure soft but MAP maintained greater than 65. Diuresing well and acute kidney injury improving. His soft tissue neck was noted to be edematous this morning, ultrasound shows a thrombosis in the right IJ. Triple-lumen in the left IJ remains patent. D5NS decreased to 50 cc an hour. Patient remains on a heparin drip but levels were subtherapeutic so bolus given. Mr. Olsen underwent an echo and the results this morning show an extremely poor ejection fraction in the 20s with severe global hypokinesis. The patient was weaned off Levophed and dopamine restarted. Mr. Olsen's case was discussed with Dr. Spaulding at [facility] as group tertiary care needed. He kindly accepts patient in transfer to the [facility]. <Shameka Aranda - Last Filed: 01/11/24 12:12> Admission Date: 01/10/24 Discharge Date: 01/11/24 Hospital Course: Pt seen and examined. I agree with the note by the SPED TEACHER. Pt was admitted for septic shock due to pneumonia. We gave iv abx and pressors. Pt had Echo which showed EF of 20% with severe global hypokinesis. He will be transferred to [facility] for higher level of care. <Dipti Koch - Last Filed: 01/11/24 15:10> Disposition: TRANSFER TO [facility] Discharge Condition: CRITICAL Vital Signs/Physical Exam: Temp Pulse Resp BP Pulse Ox 99.0 F 100 H 18 98/68 96 01/11/24 08:00 01/11/24 08:00 01/11/24 08:00 01/11/24 08:00 01/11/24 08:00 General: Other (Intubated/sedated) HEENT: Other (Nasal bridge contusion status post syncope) Neck: Other (Bilateral lateral neck appears swollen, triple-lumen IJ present to left) Respiratory: Normal air movement, Dull Cardiovascular: Regular rate/rhythm, Other (Tachycardia at 106) Capillary refill: <2 Seconds Gastrointestinal: Normal bowel sounds Musculoskeletal: No clubbing Integumentary: No rashes Neurological: Normal reflexes 2+, Other (Intubated/sedated) Lymphatics: No axilla or inguinal lymphadenopathy Urinary: Temple[place] catheter (Diuresing well) External genitalia: Deferred Rectal: Deferred Laboratory Data at Discharge: WBC Cancelled 01/11/24 05:00 Hgb Cancelled 01/11/24 05:00 Hct Cancelled 01/11/24 05:00 Plt Count Cancelled 01/11/24 05:00 PT 11.7 SECONDS (9.4-12.5) 01/10/24 09:37 INR 1.05 01/10/24 09:37 APTT 37.5 SECONDS (24.3-36.9) H 01/11/24 10:10 Sodium 137 mEq/L (136-145) 01/11/24 01:32 Potassium 3.6 mEq/L (3.5-5.1) 01/11/24 01:32 BUN 40 mg/dL (7-18) H 01/11/24 01:32 Creatinine 1.58 mg/dL (0.70-1.30) H 01/11/24 01:32 Glucose 272 mg/dL (74-106) H 01/11/24 01:32 Uric Acid 10.8 mg/dL (3.5-7.2) H 01/10/24 09:37 Phosphorus 3.2 mg/dL (2.5-4.9) 01/11/24 01:32 Magnesium 2.4 mg/dL (1.6-2.4) 01/11/24 01:32 Total Bilirubin 0.8 mg/dL (0.2-1.0) 01/11/24 01:32 AST 32 U/L (15-37) 01/11/24 01:32 ALT 51 U/L (16-61) 01/11/24 01:32 Alkaline Phosphatase 127 U/L (45-117) H 01/11/24 01:32 Triglycerides 279 mg/dL (<150) H 01/11/24 01:32 Cholesterol 89 mg/dL (<200) 01/11/24 01:32 HDL Cholesterol 10 mg/dL (40-60) L 01/11/24 01:32 Cholesterol/HDL Ratio 8.90 01/11/24 01:32 <Aranda,Shameka Ricardo - Last Filed: 01/11/24 12:12> Vital Signs/Physical Exam: Temp Pulse Resp BP Pulse Ox 100.0 F 109 H 26 H 94/75 90 L 01/11/24 13:45 01/11/24 13:45 01/11/24 14:05 01/11/24 13:45 01/11/24 14:05 Laboratory Data at Discharge: WBC Cancelled 01/11/24 05:00 Hgb Cancelled 01/11/24 05:00 Hct Cancelled 01/11/24 05:00 Plt Count Cancelled 01/11/24 05:00 PT 11.7 SECONDS (9.4-12.5) 01/10/24 09:37 INR 1.05 01/10/24 09:37 APTT 37.5 SECONDS (24.3-36.9) H 01/11/24 10:10 Sodium 137 mEq/L (136-145) 01/11/24 01:32 Potassium 3.6 mEq/L (3.5-5.1) 01/11/24 01:32 BUN 40 mg/dL (7-18) H 01/11/24 01:32 Creatinine 1.58 mg/dL (0.70-1.30) H 01/11/24 01:32 Glucose 272 mg/dL (74-106) H 01/11/24 01:32 Uric Acid 10.8 mg/dL (3.5-7.2) H 01/10/24 09:37 Phosphorus 3.2 mg/dL (2.5-4.9) 01/11/24 01:32 Magnesium 2.4 mg/dL (1.6-2.4) 01/11/24 01:32 Total Bilirubin 0.8 mg/dL (0.2-1.0) 01/11/24 01:32 AST 32 U/L (15-37) 01/11/24 01:32 ALT 51 U/L (16-61) 01/11/24 01:32 Alkaline Phosphatase 127 U/L (45-117) H 01/11/24 01:32 Triglycerides 279 mg/dL (<150) H 01/11/24 01:32 Cholesterol 89 mg/dL (<200) 01/11/24 01:32 HDL Cholesterol 10 mg/dL (40-60) L 01/11/24 01:32 Cholesterol/HDL Ratio 8.90 01/11/24 01:32 <Dipti Koch - Last Filed: 01/11/24 15:10> <Shameka Aranda - Last Filed: 01/11/24 12:12> <Dipti Koch - Last Filed: 01/11/24 15:10> Home Medications: Gabapentin [Neurontin] 600 mg PO BID 01/10/24 Losartan Potassium 25 mg PO DAILY 01/10/24 predniSONE [Prednisone] 40 mg PO DAILY 01/10/24 Physician Discharge Instructions: Mr. Olsen remains intubated , FiO2 40% , rate of 18 , tidal volume 500, PEEP of 5. He was weaned off dopamine over last evening. He remained on Levophed 0.03 mcg/kg/hr overnight. Blood pressure soft but MAP maintained greater than 65. Diuresing well and acute kidney injury improving. His soft tissue neck was noted to be edematous this morning, ultrasound shows a thrombosis in the right IJ. Triple-lumen in the left IJ remains patent. D5NS decreased to 50 cc an hour. Patient remains on a heparin drip but levels were subtherapeutic so bolus given. Mr. Olsen underwent an echo and the results this morning show an extremely poor ejection fraction in the 20s with severe global hypokinesis. The patient was weaned off Levophed and dopamine restarted. Mr. Olsen's case was discussed with Dr. Spaulding at [facility] as group tertiary care needed. He kindly accepts patient in transfer to the [facility]. Followup: Carmelina Harper MD [Primary Care Provider] -
[2024-01-11] MEDS ORDERED: DOPAMINE/D5W 400 MG/250 ML BAG IV SCH (16:15)
[2024-01-11] MEDS ORDERED: ETOMIDATE 20 MG/10 ML VIAL IV ONE (16:19)
[2024-01-11] MEDS ORDERED: ROCURONIUM 50 MG/5 ML VIAL IV ONE (16:19)
--- NOTE | 2024-01-11 16:26 | P.PN ---
Subjective Date of Service: 01/11/24 Chief Complaint: Septic shock Subjective: No new changes Review of Systems is unable to be obtained (patient is intubated) Physical Examination - Vital Signs Temperature: 100.0 F Blood Pressure: 94/75 Pulse: 109 Respirations: 26 Pulse Ox (%): 90 - Physical Exam General: In no apparent distress, Other (intubated.) HEENT: Atraumatic, PERRLA, EOMI Neck: Supple, JVD not distended Respiratory: Clear to auscultation bilaterally, Normal air movement Cardiovascular: Regular rate/rhythm, Normal S1 S2 Gastrointestinal: Normal bowel sounds, No tenderness Musculoskeletal: No tenderness Integumentary: No rashes Neurological: Normal speech, Normal tone, Normal affect Lymphatics: No axilla or inguinal lymphadenopathy - Studies Medications List Reviewed: Yes Assessment And Plan - Current Problems (Diagnosis) (1) NSTEMI (non-ST elevated myocardial infarction) Current Visit: Yes Status: Acute Plan: Patient enzymes are trending down, EKG no significant ST changes, no arrhythmia, type 1 vs. type 2 GA from septic shock, ABDIRIZAK. Heparin ACS protocol ASA 81 mg daily Lipitor 40 mg daily Echo shown severe global hypokinesis with EF 25-30%, DD and mild AD. Plan for coronary angiogram once septic shock is improving. (2) Sepsis Current Visit: Yes Status: Acute Plan: continue vasopressors support, hydration and Abx.
[2024-01-11 18:56] VITALS: TEMP 100.9
[2024-01-11] MEDS ORDERED: NA CHLORIDE 0.9% 500 ML ONE (20:31)
[2024-01-11 21:59] VITALS: BP 101/60
[2024-01-11 22:02] VITALS: O2SAT 93
[2024-01-12] MEDS ORDERED: VANCOMYCIN 1.75 GM in NA CHLORIDE 0.9% 500 ML IVPB SCH (05:00)
--- NOTE | 2024-01-14 13:06 | EKG ---
Test Date: 2024-01-10 Test Time: 01:18:28 Bridge/Structure Inspection Team Leader: NANCY MEASUREMENT RESULTS: Intervals: Rate: 120 MT: 122 QRSD: 100 QT: 340 QTc: 480 [place]: P: 61 MT: 122 QRS: 66 T: 56 INTERPRETIVE STATEMENTS: Sinus tachycardia with premature atrial complexes Otherwise normal ECG No previous ECG available for comparison Electronically Signed On 01-14-24 12:51:58 CDT by Robert Hall
--- NOTE | 2024-01-15 17:03 | EKG ---
Test Date: 2024-01-10 Test Time: 10:43:01 Digital Associate: MEASUREMENT RESULTS: Intervals: Rate: 105 OK: 134 QRSD: 100 QT: 358 QTc: 473 [place]: P: 53 OK: 134 QRS: 59 T: 26 INTERPRETIVE STATEMENTS: Sinus tachycardia Otherwise normal ECG Compared to ECG 01/10/2024 01:18:28 Atrial premature complex(es) no longer present Electronically Signed On 01-15-24 16:56:53 CDT by Robert Hall
== END 2024-01-11 21:15 | disposition short-term general hospital (02) | DRG 871 ==
LOC: ER 01:15 → ERHOLD 07:12 → 3RD-ICU 07:59 → ERHOLD 08:13 → 3RD-ICU 08:18
PROVIDERS: ADMIT Hospitalist; ATTEND Hospitalist
PROC: 5A1945Z Respiratory Ventilation, 24-96 Consecutive Hours (ICD-10-PCS; principal; 2024-01-10)
PROC: 0BH18EZ Insertion of Endotracheal Airway into Trachea, Via Natural or Artificial Opening Endoscopic (ICD-10-PCS; 2024-01-10)
PROC: 4A033R1 Measurement of Arterial Saturation, Peripheral, Percutaneous Approach (ICD-10-PCS; 2024-01-10)
PROC: 5A09357 Assistance with Respiratory Ventilation, Less than 24 Consecutive Hours, Continuous Positive Airway Pressure (ICD-10-PCS; 2024-01-10)
PROC: 30233N1 Transfusion of Nonautologous Red Blood Cells into Peripheral Vein, Percutaneous Approach (ICD-10-PCS; 2024-01-10)
PROC: 02HV33Z Insertion of Infusion Device into Superior Vena Cava, Percutaneous Approach (ICD-10-PCS; 2024-01-10)
DX: A41.9 Sepsis, unspecified organism (principal); I21.A1 Myocardial infarction type 2; J18.9 Pneumonia, unspecified organism; R65.21 Severe sepsis with septic shock; J96.00 Acute respiratory failure, unspecified whether with hypoxia or hypercapnia; I50.21 Acute systolic (congestive) heart failure; N17.9 Acute kidney failure, unspecified; E87.20 Acidosis, unspecified; E87.1 Hypo-osmolality and hyponatremia; I82.C11 Acute embolism and thrombosis of right internal jugular vein; I11.0 Hypertensive heart disease with heart failure; E87.6 Hypokalemia; E83.51 Hypocalcemia; J03.90 Acute tonsillitis, unspecified; D63.8 Anemia in other chronic diseases classified elsewhere; E88.09 Other disorders of plasma-protein metabolism, not elsewhere classified; R73.9 Hyperglycemia, unspecified; Z78.1 Physical restraint status; Z88.0 Allergy status to penicillin; Z88.2 Allergy status to sulfonamides; Z79.52 Long term (current) use of systemic steroids; Z79.899 Other long term (current) drug therapy
CPT/HCPCS: 31500; 36415; 36556; 36600; 43753; 51702; 70450; 70490; 71045; 71250; 74176; 76881; 80053; 80061; 80307; 81001; 82077; 82805; 82947; 83605; 83735; 83880; 84100; 84132; 84145; 84439; 84443; 84484; 84550; 85014; 85018; 85025; 85610; 85730; 86140; 86850; 86900; 86901; 86920; 87040; 87205; 93005; 93306; 93880; 94002; 94003; 94640; 94660; 99291; J0461; J0612; J0692; J1265; J1644; J1720; J2001; J2185; J2250; J2405; J2543; J2704; J3010; J3480; J7030; J7040; J7042; J7050; J7613; J7799; P9016; P9047